=== PATIENT | female | born 1940 | race Caucasian/White ===

== ENCOUNTER 2018-12-03 15:03 | Emergency (ER) | payer MEDICARE, SELFPAY ==
[2018-12-03 15:16] VITALS: BP 189/91; PULSE 82; RESP 13; TEMP 36.4; O2SAT 99
--- NOTE | 2018-12-03 15:17 | DI.RAD.S_ITS ---
PROCEDURE: XR CHEST 1V INDICATIONS: chest pain TECHNIQUE: One view of the chest was acquired. COMPARISON: [facility], , CHEST 2 VIEW, 05/04/2015, 19:55. FINDINGS: Surgical changes and devices: None. Lungs and pleura: Lungs are clear. No pleural effusions or pneumothorax. Mediastinum: Mediastinal contours appear normal. Heart size is normal. Bones and chest wall: No suspicious bony lesions. Overlying soft tissues appear unremarkable. IMPRESSION: Normal chest, stable. Dictated by: Lizzette Young M.D. on 12/03/2018 at 16:14 Approved by: Lizzette Young M.D. on 12/03/2018 at 16:14
[2018-12-03 15:39] LABS: Add Manual Diff / Slide Review NO; Basophils Absolute Auto 100 /uL (0-100); Basophils Percent Auto 1.3 % (0-2); Eosinophils Absolute Auto 100 /uL (0-450); Eosinophils Percent Auto 1.6 % (2-4); Hematocrit 43.7 % (36-46); Lymphocytes Absolute Auto 2800 /uL (1100-4500); Lymphocytes Percent Auto 30.4 % (25-40); Mean Corpuscular HGB Conc 34.2 % (30-36); Mean Corpuscular Hemoglobin 29.3 PG (26-34); Mean Corpuscular Volume 85.5 fL (80-100); Monocytes Absolute Auto 600 /uL (0-900); Monocytes Percent Auto 6.5 % (3-14); Neutrophils Absolute Auto 5600 /uL (1500-7000); Neutrophils Percent Auto 60.2 % (50-75); Platelet Count 250 X10^3/uL (150-400); Red Blood Cell Count 5.11 X10^6/uL (4.0-5.2); Red Cell Distribution Width 14.2 % (11.6-14.8); White Blood Cell Count 9.3 X10^3/uL (4.5-11.0)
[2018-12-03 15:43] LABS: INR 0.9 (0.9-1.3); Prothrombin Time 10.1 SECONDS (10.1-12.7)
[2018-12-03 15:45] LABS: PTT Partial Thromboplastin Tim 29 SECONDS (26.4-36.2)
--- NOTE | 2018-12-03 15:47 | ED.CHESTPAIN ---
HPI - Chest Pain General Chief Complaint: Chest Pain Stated Complaint: sent by [facility], squeezing feeling, chest and neck Time Seen by Provider: 12/03/18 15:47 Source: patient Mode of arrival: ambulatory Limitations: no limitations History of Present Illness HPI narrative: 78-year-old female comes to the emergency department with complaint of squeezing feeling in her upper chest/lower neck and between her shoulder blades. Patient states it has been going on for about 3 weeks. She states it seems like it is relieved when she has a burp but feels like pressure. She states that some it has increased in intensity. It has been intermittent with no clear causes or exacerbating features. She states that today she went for a walk which she normally does on a regular basis they normally walks about 3 miles which she had to stop 3 times because she felt a little short of breath. Patient states that was new. She states she has been hiking regularly without any issues. She states that she did have food a couple hours before and she thought that might have caused her symptoms. Denies fevers, chills, she has had some hot flashes intermittently but not associated with her symptoms. She states no shortness of breath, no nausea no vomiting some but she felt anxious when the episode was happening. No issues with bowel movements or urination and no numbness tingling or weakness in her upper extremities. She takes lisinopril as well as metformin. No stents, no catheterization, she had a TIA a couple months ago. She a stress test very remotely. States she has a hysterectomy, 1 of her ovaries removed an fracture repair for her left wrist. Pratik is her PCP no tobacco, occasional alcohol no illicit. Family history half brother with a AAA but no other cardiac history. Related Data Home Medications Medication Instructions Recorded Confirmed metformin 1,000 mg PO BIDCC #0 06/01/17 06/24/18 Previous Rx's Medication Instructions Recorded aspirin 81 mg PO QDAY #30 tab 06/02/17 benzonatate 100 mg capsule 100 mg PO BEDTIME #20 cap 06/24/18 erythromycin 5 mg/gram (0.5 %) eye 1 applictn OPHTHALMIC (EYE) BID 06/24/18 ointment #3.5 gram Allergies Allergy/AdvReac Type Severity Reaction Status Date / Time Sulfa (Sulfonamide Allergy Intermediate SKIN Verified 06/24/18 16:20 Antibiotics) BRUISING prednisone [PREDNISONE] Allergy Unknown MORBID Verified 06/24/18 16:20 NIGHTMARES rosuvastatin [From Crestor] AdvReac Intermediate Muscle Verified 06/24/18 16:21 aches, fatigue Review of Systems Review of Systems ROS Unobtainable: All systems reviewed & are unremarkable except as noted in HPI and below PFSH Medical History (Updated 12/03/18 @ 16:13 by Pam Rudd DO) Hypertension (Chronic) Surgical History History of third molar tooth extraction Status post appendectomy Status post hysterectomy with oophorectomy Social History Smoking Status: Former smoker Family History (Updated 12/03/18 @ 16:11 by Pam Rudd DO) Brother AAA (abdominal aortic aneurysm) Social History (Updated 12/03/18 @ 16:11 by Pam Rudd DO) Smoking Status: Former smoker alcohol intake: current substance use type: does not use Exam Narrative Exam Narrative: GENERAL: Alert and oriented x three, well-nourished, well-appearing female in no acute distress. HEENT: Head normocephalic, atraumatic, EOMI, pupils reactive, face symmetric, moist mucous membranes NECK: Supple, full range of motion CARDIOVASCULAR: Regular rate and rhythm without murmurs, rubs or gallops. RESPIRATORY: Breath sounds equal bilaterally, no wheezes rales or rhonchi. ABDOMEN: Soft, nontender. Normoactive bowel sounds all 4 quadrants. No guarding or rebound, rigidity, no mass : No CVA tenderness EXTREMITIES: Normal range of motion, no clubbing or edema. Neurovascularly intact NEUROLOGICAL: Cranial nerves II through XII grossly intact. Moving all extremities SKIN: Warm, dry, no petechiae, no rashes or lesions. Initial Vital Signs Initial Vital Signs: Vital Signs Temperature 97.5 F L 12/03/18 15:16 Pulse Rate 82 12/03/18 15:16 Respiratory Rate 13 12/03/18 15:16 Blood Pressure 189/91 H 12/03/18 15:16 Pulse Oximetry 99 12/03/18 15:16 Scores HEART Score Heart Score history: Moderately Suspicious Heart Score EKG: Non-Specific repolarization disturbance Heart Score Age: > or = 65 years old Heart Score risk factors: 1-2 risk factors Heart Score troponin: < or = to normal limit Heart Score Total: 5 Course Orders Ordered: ED Orders 12/03/18 15:15 EKG-12 Lead Stat 12/03/18 15:17 XR chest 1V Stat 12/03/18 15:30 B Type Natriuretic Peptide Stat Complete Blood Count AUTO DIFF Stat Comprehensive Metabolic Panel Stat Lipase Stat Partial Thromboplastin Time Stat Prothrombin Time INR Stat Troponin & CK Cardiac Panel Stat Discontinued Medications Aspirin (Aspirin Chew) 324 mg PO NOW ONE Stop: 12/03/18 16:14 Last Admin: 12/03/18 16:40 Dose: 324 mg Vital Signs - 8 hr 12/03/18 15:16 12/03/18 17:20 Temperature 97.5 F L Pulse Rate 82 60 Respiratory Rate 13 15 Blood Pressure 189/91 H 163/76 H Pulse Oximetry 99 100 MDM - Chest Pain Lab Data Attestation: I reviewed the patient's lab results. Result diagrams: 12/03/18 15:30 12/03/18 15:30 Lab Results 12/03/18 12/03/18 12/03/18 Range/Units 15:30 15:30 15:30 WBC 9.3 (4.5-11.0) X10^3/uL RBC 5.11 (4.0-5.2) X10^6/uL Hgb 15.0 (12.0-16.0) g/dL Hct 43.7 (36-46) % MCV 85.5 (80-100) fL MCH 29.3 (26-34) PG MCHC 34.2 (30-36) % RDW 14.2 (11.6-14.8) % Plt Count 250 (150-400) X10^3/uL Neut % (Auto) 60.2 (50-75) % Lymph % (Auto) 30.4 (25-40) % [place] % (Auto) 6.5 (3-14) % Eos % (Auto) 1.6 L (2-4) % Baso % (Auto) 1.3 (0-2) % Neut # (Auto) 5600 (4672-4985) /uL Lymph # (Auto) 2800 (8043-4805) /uL [place] # (Auto) 600 (0-900) /uL Eos # (Auto) 100 (0-450) /uL Baso # (Auto) 100 (0-100) /uL PT 10.1 (10.1-12.7) SECONDS INR 0.9 (0.9-1.3) APTT 29 (26.4-36.2) SECONDS Sodium 138 (137-145) mmol/L Potassium 4.1 (3.4-5.1) mmol/L Chloride 101 (98-107) mmol/L Carbon Dioxide 26 (22-32) mmol/L BUN 21 H (7-17) mg/dL Creatinine 0.60 (0.52-1.04) mg/dL Estimated GFR > 60.0 (>60) mL/min BUN/Creatinine Ratio 35.0 H (6-22) Glucose 177 H (80-110) mg/dL Calcium 9.7 (8.4-10.2) mg/dL Total Bilirubin 0.8 (0.2-1.3) mg/dL AST 27 (14-36) IU/L ALT 13 (9-52) IU/L Alkaline Phosphatase 67 (38-126) U/L Total Creatine Kinase 44 (30-135) U/L CK-MB (CK-2) TNP CK-MB (CK-2) Rel Index TNP Troponin I < 0.012 (0.01-0.034) ng/mL B-Natriuretic Peptide (<100) Total Protein 7.9 (6.3-8.2) g/dL Albumin 4.5 (3.5-5.0) g/dL Globulin 3.4 (1.7-4.1) g/dL Albumin/Globulin Ratio 1.3 (1.0-2.8) Lipase 70 (23-300) U/L // Range/Units 15:30 WBC (4.5-11.0) X10^3/uL RBC (4.0-5.2) X10^6/uL Hgb (12.0-16.0) g/dL Hct (36-46) % MCV (80-100) fL MCH (26-34) PG MCHC (30-36) % RDW (11.6-14.8) % Plt Count (150-400) X10^3/uL Neut % (Auto) (50-75) % Lymph % (Auto) (25-40) % [place] % (Auto) (3-14) % Eos % (Auto) (2-4) % Baso % (Auto) (0-2) % Neut # (Auto) (0138-2597) /uL Lymph # (Auto) (8538-8345) /uL [place] # (Auto) (0-900) /uL Eos # (Auto) (0-450) /uL Baso # (Auto) (0-100) /uL PT (10.1-12.7) SECONDS INR (0.9-1.3) APTT (26.4-36.2) SECONDS Sodium (137-145) mmol/L Potassium (3.4-5.1) mmol/L Chloride (98-107) mmol/L Carbon Dioxide (22-32) mmol/L BUN (7-17) mg/dL Creatinine (0.52-1.04) mg/dL Estimated GFR (>60) mL/min BUN/Creatinine Ratio (6-22) Glucose (80-110) mg/dL Calcium (8.4-10.2) mg/dL Total Bilirubin (0.2-1.3) mg/dL AST (14-36) IU/L ALT (9-52) IU/L Alkaline Phosphatase (38-126) U/L Total Creatine Kinase (30-135) U/L CK-MB (CK-2) CK-MB (CK-2) Rel Index Troponin I (0.01-0.034) ng/mL B-Natriuretic Peptide < 100 (<100) Total Protein (6.3-8.2) g/dL Albumin (3.5-5.0) g/dL Globulin (1.7-4.1) g/dL Albumin/Globulin Ratio (1.0-2.8) Lipase (23-300) U/L Imaging Data Chest x-ray: Radiologist's impression: Alice Rangel 78 F [address] [address] XRay Report Signed Patient: Alice Rangel FMR#: [id number] : 2Acct:[id number] Age/Sex: 78 / FDate of Service: 12/03/18 Loc: ED Accession Number: [id number] Procedure: XR chest 1V Ordering Provider: Pam Rudd D.O. PROCEDURE: XR CHEST 1V INDICATIONS: chest pain TECHNIQUE: One view of the chest was acquired. COMPARISON: [facility], , CHEST 2 VIEW, 05/04/2015, 19:55. FINDINGS: Surgical changes and devices: None. Lungs and pleura: Lungs are clear. No pleural effusions or pneumothorax. Mediastinum: Mediastinal contours appear normal. Heart size is normal. Bones and chest wall: No suspicious bony lesions. Overlying soft tissues appear unremarkable. IMPRESSION: Normal chest, stable. Dictated by: Lizzette Young M.D. on 12/03/2018 at 16:14 Approved by: Lizzette Young M.D. on 12/03/2018 at 16:14 ECG Data Attestation: I personally reviewed and interpreted this ECG as follows: Prior ECG tracings: available for review Interpretation: Sinus rhythm with a rate of 66 P are 161 QRS of 91 QTC of 424. No ST elevation. Possible ST depression although 0.5 mm to 1 mm in the lateral leads. Patient has prior EKG from 06/01/2018 appears similar except for lateral leads. MDM Narrative Medical decision making narrative: Patient's lab work shows no acute changes. Patient CXR is nap. Patient's EKG does not show any clear changes although possibly a little depression in lateral leads. Discussed with patient this could potentially be a cardiac equivalent for atypical chest pain although unclear if she finds it improved with belching. Discussed chest pain observation for stress testing. Patient referred to return home discussed chatting with her primary care to get her setup was out short-term outpatient stress testing as her symptoms are intermittent and not associated with anything so they were chest pain equivalent would be an unstable angina. We did discuss that it would be safer for her to be kept as observation for stress testing and that ws recommended. Discussed with patient's primary care team her primary care doctor is on vacation but discussed with Dr. Solis he states if she can call in the morning they will get her in for eval and stress testing this week. We discussed that patient should take a daily aspirin. Discharge Plan Departure Patient Disposition: Home Clinical Impression: Atypical chest pain Discharge Date/Time: 12/03/18 17:20 Interventions: ED Discharge Assessment Last Done: 12/03/18 17:20 Instructions: DI for Atypical Chest Pain Activity Restrictions/Additional Instructions: Call the morning for follow-up with Dr. Christie's office and stress testing this week. Continue an aspirin daily until seen by [facility] primary care. Continue her other home medications as prescribed. Return to the emergency department for new or recurrent symptoms, new chest pain, shortness of breath, lightheadedness, passing out, persistent nausea or vomiting, clamminess or cold sweats, or concerning symptoms. Prescriptions: No Action benzonatate 100 mg capsule 100 mg PO BEDTIME Qty: 20 RF: 0 erythromycin 5 mg/gram (0.5 %) ointment 1 applictn ophthalmic (eye) BID Qty: 3.5 RF: 2 metformin 1,000 MG tablet 1,000 mg PO BIDCC Qty: 0 RF: 0 aspirin 81 MG tablet,delayed release (DR/EC) 81 mg PO QDAY Qty: 30 RF: 0 Referrals: Gold Christie MD [Primary Care Provider] -
[2018-12-03 15:52] LABS: Alanine Aminotransferase 13 IU/L (9-52); Albumin 4.5 g/dL (3.5-5.0); Albumin Globulin Ratio 1.3 (1.0-2.8); Alkaline Phosphatase 67 U/L (38-126); Aspartate Aminotransferase 27 IU/L (14-36); Bilirubin Total 0.8 mg/dL (0.2-1.3); Blood Urea Nitrogen 21 mg/dL (7-17); Calcium 9.7 mg/dL (8.4-10.2); Carbon Dioxide 26 mmol/L (22-32); Chloride 101 mmol/L (98-107); Creatine Kinase 44 U/L (30-135); Estimated Glomerular Filt Rate > 60.0 mL/min (>60); Globulin 3.4 g/dL (1.7-4.1); Glucose 177 mg/dL (80-110); HEMOLYSIS 48 (0-50); Lipase 70 U/L (23-300); Potassium 4.1 mmol/L (3.4-5.1); Sodium 138 mmol/L (137-145); Total Protein 7.9 g/dL (6.3-8.2)
[2018-12-03 16:04] LABS: Troponin I < 0.012 ng/mL (0.01-0.034)
--- NOTE | 2018-12-03 16:06 | ED_ITS ---
HPI - Chest Pain General Chief Complaint: Chest Pain Stated Complaint: sent by [facility], squeezing feeling, chest and neck Time Seen by Provider: 12/03/18 15:47 Source: patient Mode of arrival: ambulatory Limitations: no limitations History of Present Illness HPI narrative: 78-year-old female comes to the emergency department with complaint of squeezing feeling in her upper chest/lower neck and between her shoulder blades. Patient states it has been going on for about 3 weeks. She states it seems like it is relieved when she has a burp but feels like pressure. She states that some it has increased in intensity. It has been intermittent with no clear causes or exacerbating features. She states that today she went for a walk which she normally does on a regular basis they normally walks about 3 miles which she had to stop 3 times because she felt a little short of breath. Patient states that was new. She states she has been hiking regularly without any issues. She states that she did have food a couple hours before and she thought that might have caused her symptoms. Denies fevers, chills, she has had some hot flashes intermittently but not associated with her symptoms. She states no shortness of breath, no nausea no vomiting some but she felt anxious when the episode was happening. No issues with bowel movements or urination and no numbness tingling or weakness in her upper extremities. She takes lisinopril as well as metformin. No stents, no catheterization, she had a TIA a couple mon ths ago. She a stress test very remotely. States she has a hysterectomy, 1 of her ovaries removed an fracture repair for her left wrist. Pratik is her PCP no tobacco, occasional alcohol no illicit. Family history half brother with a AAA but no other cardiac history. Related Data Home Medications Medication Instructions Recorded Confirmed metformin 1,000 mg PO BIDCC #0 06/01/17 06/24/18 Previous Rx's Medication Instructions Recorded aspirin 81 mg PO QDAY #30 tab 06/02/17 benzonatate 100 mg capsule 100 mg PO BEDTIME #20 cap 06/24/18 erythromycin 5 mg/gram (0.5 %) eye 1 applictn OPHTHALMIC (EYE) BID 06/24/18 ointment #3.5 gram Allergies Allergy/AdvReac Type Severity Reaction Status Date / Time Sulfa (Sulfonamide Allergy Intermediate SKIN Verified 06/24/18 16:20 Antibiotics) BRUISING prednisone [PREDNISONE] Allergy Unknown MORBID Verified 06/24/18 16:20 NIGHTMARES rosuvastatin [From Crestor] AdvReac Intermediate Muscle Verified 06/24/18 16:21 aches, fatigue Review of Systems Review of Systems ROS Unobtainable: All systems reviewed & are unremarkable except as noted in HPI and below PFSH Medical History (Updated 12/03/18 @ 16:13 by Pam Rudd DO) Hypertension (Chronic) Surgical History History of third molar tooth extraction Status post appendectomy Status post hysterectomy with oophorectomy Social History Smoking Status: Former smoker Family History (Updated 12/03/18 @ 16:11 by Pam Rudd DO) Brother AAA (abdominal aortic aneurysm) Social History (Updated 12/03/18 @ 16:11 by Pam Rudd DO) Smoking Status: Former smoker alcohol intake: current substance use type: does not use Exam Narrative Exam Narrative: GENERAL: Alert and oriented x three, well-nourished, well- appearing female in no acute distress. HEENT: Head normocephalic, atraumatic, EOMI, pupils reactive, face symmetric, moist mucous membranes NECK: Supple, full range of motion CARDIOVASCULAR: Regular rate and rhythm without murmurs, rubs or gallops. RESPIRATORY: Breath sounds equal bilaterally, no wheezes rales or rhonchi. ABDOMEN: Soft, nontender. Normoactive bowel sounds all 4 quadrants. No guarding or rebound, rigidity, no mass : No CVA tenderness EXTREMITIES: Normal range of motion, no clubbing or edema. Neurovascularly intact NEUROLOGICAL: Cranial nerves II through XII grossly intact. Moving all extremities SKIN: Warm, dry, no petechiae, no rashes or lesions. Initial Vital Signs Initial Vital Signs: Vital Signs Temperature 97.5 F L 12/03/18 15:16 Pulse Rate 82 12/03/18 15:16 Respiratory Rate 13 12/03/18 15:16 Blood Pressure 189/91 H 12/03/18 15:16 Pulse Oximetry 99 12/03/18 15:16 Scores HEART Score Heart Score history: Moderately Suspicious Heart Score EKG: Non-Specific repolarization disturbance Heart Score Age: > or = 65 years old Heart Score risk factors: 1-2 risk factors Heart Score troponin: < or = to normal limit Heart Score Total: 5 Course Orders Ordered: ED Orders 12/03/18 15:15 EKG-12 Lead Stat 12/03/18 15:17 XR chest 1V Stat 12/03/18 15:30 B Type Natriuretic Peptide Stat Complete Blood Count AUTO DIFF Stat Comprehensive Metabolic Panel Stat Lipase Stat Partial Thromboplastin Time Stat Prothrombin Time INR Stat Troponin & CK Cardiac Panel Stat Discontinued Medications Aspirin (Aspirin Chew) 324 mg PO NOW ONE Stop: 12/03/18 16:14 Last Admin: 12/03/18 16:40 Dose: 324 mg Vital Signs - 8 hr 12/03/18 15:16 12/03/18 17:20 Temperature 97.5 F L Pulse Rate 82 60 Respiratory Rate 13 15 Blood Pressure 189/91 H 163/76 H Pulse Oximetry 99 100 MDM - Chest Pain Lab Data Attestation: I reviewed the patient's lab results. Result diagrams: 12/03/18 15:30 12/03/18 15:30 Lab Results 12/03/18 12/03/18 12/03/18 Range/Units 15:30 15:30 15:30 WBC 9.3 (4.5-11.0) X10^3/uL RBC 5.11 (4.0-5.2) X10^6/uL Hgb 15.0 (12.0-16.0) g/dL Hct 43.7 (36-46) % MCV 85.5 (80-100) fL MCH 29.3 (26-34) PG MCHC 34.2 (30-36) % RDW 14.2 (11.6-14.8) % Plt Count 250 (150-400) X10^3/uL Neut % (Auto) 60.2 (50-75) % Lymph % (Auto) 30.4 (25-40) % [place] % (Auto) 6.5 (3-14) % Eos % (Auto) 1.6 L (2-4) % Baso % (Auto) 1.3 (0-2) % Neut # (Auto) 5600 (9526-7095) /uL Lymph # (Auto) 2800 (4180-2698) /uL [place] # (Auto) 600 (0-900) /uL Eos # (Auto) 100 (0-450) /uL Baso # (Auto) 100 (0-100) /uL PT 10.1 (10.1-12.7) SECONDS INR 0.9 (0.9-1.3) APTT 29 (26.4-36.2) SECONDS Sodium 138 (137-145) mmol/L Potassium 4.1 (3.4-5.1) mmol/L Chloride 101 (98-107) mmol/L Carbon Dioxide 26 (22-32) mmol/L BUN 21 H (7-17) mg/dL Creatinine 0.60 (0.52-1.04) mg/dL Estimated GFR > 60.0 (>60) mL/min BUN/Creatinine Ratio 35.0 H (6-22) Glucose 177 H (80-110) mg/dL Calcium 9.7 (8.4-10.2) mg/dL Total Bilirubin 0.8 (0.2-1.3) mg/dL AST 27 (14-36) IU/L ALT 13 (9-52) IU/L Alkaline Phosphatase 67 (38-126) U/L Total Creatine Kinase 44 (30-135) U/L CK-MB (CK-2) TNP CK-MB (CK-2) Rel Index TNP Troponin I < 0.012 (0.01-0.034) ng/mL B-Natriuretic Peptide (<100) Total Protein 7.9 (6.3-8.2) g/dL Albumin 4.5 (3.5-5.0) g/dL Globulin 3.4 (1.7-4.1) g/dL Albumin/Globulin Ratio 1.3 (1.0-2.8) Lipase 70 (23-300) U/L // Range/Units 15:30 WBC (4.5-11.0) X10^3/uL RBC (4.0-5.2) X10^6/uL Hgb (12.0-16.0) g/dL Hct (36-46) % MCV (80-100) fL MCH (26-34) PG MCHC (30-36) % RDW (11.6-14.8) % Plt Count (150-400) X10^3/uL Neut % (Auto) (50-75) % Lymph % (Auto) (25-40) % [place] % (Auto) (3-14) % Eos % (Auto) (2-4) % Baso % (Auto) (0-2) % Neut # (Auto) (5790-4321) /uL Lymph # (Auto) (5994-6219) /uL [place] # (Auto) (0-900) /uL Eos # (Auto) (0-450) /uL Baso # (Auto) (0-100) /uL PT (10.1-12.7) SECONDS INR (0.9-1.3) APTT (26.4-36.2) SECONDS Sodium (137-145) mmol/L Potassium (3.4-5.1) mmol/L Chloride (98-107) mmol/L Carbon Dioxide (22-32) mmol/L BUN (7-17) mg/dL Creatinine (0.52-1.04) mg/dL Estimated GFR (>60) mL/min BUN/Creatinine Ratio (6-22) Glucose (80-110) mg/dL Calcium (8.4-10.2) mg/dL Total Bilirubin (0.2-1.3) mg/dL AST (14-36) IU/L ALT (9-52) IU/L Alkaline Phosphatase (38-126) U/L Total Creatine Kinase (30-135) U/L CK-MB (CK-2) CK-MB (CK-2) Rel Index Troponin I (0.01-0.034) ng/mL B-Natriuretic Peptide < 100 (<100) Total Protein (6.3-8.2) g/dL Albumin (3.5-5.0) g/dL Globulin (1.7-4.1) g/dL Albumin/Globulin Ratio (1.0-2.8) Lipase (23-300) U/L Imaging Data Chest x-ray: Radiologist's impression: Alice Rangel 78 F [address] [address] XRay Report Signed Patient: Alice Rangel FMR#: [id number] : 2Acct:[id number] Age/Sex: 78 / FDate of Service: 12/03/18 Loc: ED Accession Number: [id number] Procedure: XR chest 1V Ordering Provider: Pam Rudd D.O. PROCEDURE: XR CHEST 1V INDICATIONS: chest pain TECHNIQUE: One view of the chest was acquired. COMPARISON: [facility], CHEST 2 VIEW, 05/04/2015, 19:55. FINDINGS: Surgical changes and devices: None. Lungs and pleura: Lungs are clear. No pleural effusions or pneumothorax. Mediastinum: Mediastinal contours appear normal. Heart size is normal. Bones and chest wall: No suspicious bony lesions. Overlying soft tissues appear unremarkable. IMPRESSION: Normal chest, stable. Dictated by: Lizzette Young M.D. on 12/03/2018 at 16:14 Approved by: Lizzette Young M.D. on 12/03/2018 at 16:14 ECG Data Attestation: I personally reviewed and interpreted this ECG as follows: Prior ECG tracings: available for review Interpretation: Sinus rhythm with a rate of 66 P are 161 QRS of 91 QTC of 424. No ST elevation. Possible ST depression although 0.5 mm to 1 mm in the lateral leads. Patient has prior EKG from 06/01/2018 appears similar except for lateral leads. MDM Narrative Medical decision making narrative: Patient's lab work shows no acute changes. Patient CXR is nap. Patient's EKG does not show any clear changes although possibly a little depression in lateral leads. Discussed with patient this could potentially be a cardiac equivalent for atypical chest pain although unclear if she finds it improved with belching. Discussed chest pain observation for stress testing. Patient referred to return home discussed chatting with her primary care to get her setup was out short-term outpatient stress testing as her symptoms are intermittent and not associated with anything so they were chest pain equivalent would be an unstable angina. We did discuss that it would be safer for her to be kept as observation for stress testing and that ws recommended. Discussed with patient's primary care team her primary care doctor is on vacation but discussed with Dr. Solis he states if she can call in the morning they will get her in for eval and stress testing this week. We discussed that patient should take a daily aspirin. Discharge Plan Departure Patient Disposition: Home Clinical Impression: Atypical chest pain Discharge Date/Time: 12/03/18 17:20 Interventions: ED Discharge Assessment Last Done: 12/03/18 17:20 Instructions: DI for Atypical Chest Pain Activity Restrictions/Additional Instructions: Call the morning for follow-up with Dr. Christie's office and stress testing this week. Continue an aspirin daily until seen by [facility]. Continue her other home medications as prescribed. Return to the emergency department for new or recurrent symptoms, new chest pain, shortness of breath, lightheadedness, passing out, persistent nausea or vomiting, clamminess or cold sweats, or concerning symptoms. Prescriptions: No Action benzonatate 100 mg capsule 100 mg PO BEDTIME Qty: 20 RF: 0 erythromycin 5 mg/gram (0.5 %) ointment 1 applictn ophthalmic (eye) BID Qty: 3.5 RF: 2 metformin 1,000 MG tablet 1,000 mg PO BIDCC Qty: 0 RF: 0 aspirin 81 MG tablet,delayed release (DR/EC) 81 mg PO QDAY Qty: 30 RF: 0 Referrals: Gold Christie MD [Primary Care Provider] -
[2018-12-03 16:34] LABS: B Type Natriuretic Peptide < 100 (<100)
[2018-12-03] MEDS: ASPIRIN 81 MG TAB 324 MG PO (16:40)
--- NOTE | 2018-12-03 16:46 | PC.NURSE ---
Pain is intermittent with no known precipitating factor. It is mainly at the base of the neck and upper shoulder region and sometimes on the front of the neck. She denies any other symptoms that accompany the pain. She is in no pain currently. Appears in no acute distress, easy work of breathing. States sometimes when she burps that seems to help.
[2018-12-03 17:20] VITALS: BP 163/76; PULSE 60; RESP 15; O2SAT 100
== END 2018-12-03 17:20 | disposition home or self-care (01) ==
PROVIDERS: Emergency Provider Emergency Medicine; Family Provider Internal Medicine; PCP Internal Medicine
DX: R07.89 Other chest pain (principal)
CPT/HCPCS: 36591; 71045; 80053; 82550; 83690; 83880; 84484; 85025; 85610; 85730; 93005; 99282; 99285

== ENCOUNTER → 2020-02-19 15:33 | Outpatient (ROUT) | payer MEDICARE, SELFPAY ==
[2020-02-19 16:21] LABS: Aspartate Aminotransferase 20 IU/L (14-36); Blood Urea Nitrogen 20 mg/dL (7-17); Calcium 9.7 mg/dL (8.4-10.2); Carbon Dioxide 31 mmol/L (22-32); Chloride 99 mmol/L (98-107); Cholesterol 288 mg/dL (140-199); Estimated Glomerular Filt Rate > 60.0 mL/min (>60); Glucose 253 mg/dL (80-110); HDL Cholesterol 63 mg/dL (40-60); HEMOLYSIS < 15 (0-50); LDL Cholesterol Calculated 163 mg/dL (<100); Potassium 4.1 mmol/L (3.4-5.1); Sodium 136 mmol/L (137-145); Triglycerides 310 mg/dL (35-150)
== END ==
PROVIDERS: Family Provider Internal Medicine; PCP Internal Medicine; Visit Provider Internal Medicine
DX: I10 Essential (primary) hypertension (principal); E78.2 Mixed hyperlipidemia
CPT/HCPCS: 80048; 80061; 84450

== ENCOUNTER → 2020-08-07 10:48 | Outpatient (CLI) | payer MEDICARE, SELFPAY ==
--- NOTE | 2020-08-07 10:50 | DI.MG.S_ITS ---
BILATERAL DIGITAL SCREENING MAMMOGRAM 3D/2D WITH CAD: 08/07/2020 CLINICAL: Routine screening. Family history of breast cancer. Comparison is made to exams dated: 07/24/2017 mammogram, 06/06/2013 mammogram - [facility], and 02/24/2011 mammogram - [facility]. There are scattered fibroglandular elements in both breasts. Current study was also evaluated with a Computer Aided Detection (CAD) system. No significant masses, calcifications, or other findings are seen in either breast. There has been no significant interval change. IMPRESSION: NEGATIVE There is no mammographic evidence of malignancy. A 1 year screening mammogram is recommended. This exam was interpreted at Station ID: [id number]. NOTE: For mammograms, a report in lay terms will be sent to the patient. Approximately 15% of breast malignancies will not be visualized mammographically. In the management of a palpable breast mass, a negative mammogram must not discourage biopsy of a clinically suspicious lesion. Electronically Signed By: Chico villafuerte/mychal:08/09/2020 08:05:33 letter sent: Normal Exam ACR BI-RADS Category 1: Negative 3341F
== END ==
PROVIDERS: Family Provider Internal Medicine; PCP Internal Medicine; Referring Provider Internal Medicine; Visit Provider Internal Medicine
DX: Z12.31 Encounter for screening mammogram for malignant neoplasm of breast (principal); Z80.3 Family history of malignant neoplasm of breast
CPT/HCPCS: 77063; 77067

== ENCOUNTER → 2022-01-21 09:57 | Outpatient (CLI) | payer MEDICARE, SELFPAY ==
--- NOTE | 2022-01-21 | DI.MG.S_ITS ---
BILATERAL DIGITAL SCREENING MAMMOGRAM 3D/2D WITH CAD: 01/21/2022 CLINICAL: Routine screening. Family history of breast cancer. Comparison is made to exams dated: 08/07/2020 mammogram, 07/24/2017 mammogram, and 06/06/2013 mammogram - [facility]. There are scattered areas of fibroglandular density in both breasts (category b / 25%-50% glandular tissue). Current study was also evaluated with a Computer Aided Detection (CAD) system. There is a benign calcification in both breasts. There also are benign vascular calcifications in the left breast. Additionally, there are benign post operative findings in the right breast. There are mole markers on the left breast. No significant masses, calcifications, or other findings are seen in either breast. There has been no significant interval change. IMPRESSION: BENIGN There is no mammographic evidence of malignancy. A 1 year screening mammogram is recommended. Based on the Tyrer Cuzick model (a risk assessment model) the patient's lifetime risk is 1.5% and her 10 year risk is 0.0%. According to the ACR, ACS, and NCCN guidelines, an annual breast MRI exam along with mammogram is recommended if the patient's lifetime risk is 20% or greater. This exam was interpreted at Station ID: [id number]. NOTE: For mammograms, a report in lay terms will be sent to the patient. Approximately 15% of breast malignancies will not be visualized mammographically. In the management of a palpable breast mass, a negative mammogram must not discourage biopsy of a clinically suspicious lesion. Electronically Signed By: Justen doty/mychal:01/23/2022 10:05:02 letter sent: Normal Exam ACR BI-RADS Category 2: Benign Finding(s) 3342F
== END ==
PROVIDERS: Family Provider Internal Medicine; PCP Internal Medicine; Referring Provider Student in an Organized Health Care Education/Training Program; Visit Provider Student in an Organized Health Care Education/Training Program
DX: Z12.31 Encounter for screening mammogram for malignant neoplasm of breast (principal); Z80.3 Family history of malignant neoplasm of breast
CPT/HCPCS: 77063; 77067

== ENCOUNTER → 2022-02-09 09:10 | Outpatient (CLI) | payer MEDICARE, SELFPAY ==
--- NOTE | 2022-02-09 | DI.ECHO.S_ITS ---
[facility] +---------+ [facility] +---------+ : : [address] [place] [place] : : : : [id number] : : : : Phone: [phone]+ Echocardiogram Report + + :Name: IAN STEWART Study Date: 02/09/2022 Height: 65 in : :[facility] ReadingLocation: Weight: 146 lb : : Gender: Female BSA: 1.7 m2 : :: 1940 Age: 81 yrs BP: 181/97 mmHg: :Reason For Study: Murmur : :Ordering Physician: KAUSHIK, : :NATALIE Performed By: Fidel Hickey : :Referring: NATALIE FAULKNER : + + Interpretation Summary The ejection fraction is estimated to be 60-65%. Grade II diastolic dysfunction The right ventricle is normal in size and function. The right ventricular systolic pressure is estimated to be at least 27 mmHg based on an estimated right atrial pressure of 3 mm Hg. No significant valvular disease. Procedure: A two-dimensional transthoracic echocardiogram with color flow and Doppler was performed. The study quality was technically adequate. Comparison is made with the echocardiogram of 06/08/2017. The patient was in normal sinus rhythm during the exam. Left Ventricle: The left ventricle is normal in size and wall thickness. Left ventricular systolic function is normal. The ejection fraction is estimated to be 60-65%. There are no focal wall motion abnormalities. Grade II diastolic dysfunction. Right Ventricle: The right ventricle is normal in size and function. Atria: The left atrium is mildly dilated. Right atrial size is normal. The interatrial septum grossly appears intact with no obvious evidence for an atrial septal defect. Mitral Valve: There is moderate mitral annular calcification. There is mild mitral regurgitation. Aortic Valve: The aortic valve is normal in structure and function. There is no hemodynamically significant valvular aortic stenosis. No aortic regurgitation is present. Tricuspid Valve: The tricuspid valve is normal in structure and function. There is mild tricuspid regurgitation. The right ventricular systolic pressure is estimated to be at least 27 mmHg based on an estimated right atrial pressure of 3 mm Hg. Pulmonic Valve: The pulmonic valve is normal in structure and function. There is trace pulmonic regurgitation. Great Vessels: The aortic root is normal size. The dimensions of the ascending aorta are normal. The IVC is of normal diameter and collapses greater than 50% with a sniff. This suggests a low right atrial pressure of 3 mm Hg. Pericardium/ Pleura There is no pericardial effusion. There is no pleural effusion. MMode/2D Measurements & Calculations LVIDd: 4.7 cm LVOT diam: 2.1 cm LVIDs: 3.2 cm Ao root diam: 2.7 cm FS: 31.9 % asc Aorta Diam: 2.8 cm IVSd: 0.80 cm LVPWd: 0.90 cm LV to. diameter/BSA (cm/m^2): 2.7 LV sys. diameter/BSA (cm/m^2): 1.8 LA dimension: 3.6 cm RA long axis: 5.1 cm LA A2 area: 20.8 cm2 LA A4 area: 21.7 cm2 LA length (vol): 6.1 cm LA vol: 63.1 ml LA vol index: 36.4 ml/m2 LA A4C-A/L_phl: 21.7 cm2 TAPSE_phl: 2.6 cm Doppler Measurements & Calculations Ao V2 max: 191.0 cm/sec LVOT Max Michael: 99.2 cm/sec Ao V2 mean: 132.0 cm/sec LV V1 max P.9 mmHg Ao max P.0 mmHg LV V1 VTI: 25.2 cm Ao mean P.0 mmHg ERNESTINE(I,D): 2.0 cm2 Ao V2 VTI: 43.3 cm ERNESTINE(V,D): 1.8 cm2 sev ratio: 0.58 ERNESTINE indexed to BSA (cm^2/m^2): 1.2 MV E max michael: 114.0 cm/sec TR max michael: 244.0 cm/sec MV A max michael: 103.0 cm/sec TR max P.8 mmHg MV E/A: 1.1 Med Peak E' Michael: 7.3 cm/sec E/E' med: 15.7 Lat Peak E' Michael: 8.4 cm/sec E/E' lat: 13.5 E/e' average: 14.6 MV dec time: 0.21 sec SV(LVOT): 87.3 ml AV VR_phl: 0.52 ERNESTINE(VTI)/BSA_phl: 1.2 MV P1/2t-pr_phl: 61.0 msec Reading Physician:POPPY
== END ==
PROVIDERS: Family Provider Internal Medicine; PCP Student in an Organized Health Care Education/Training Program; Referring Provider Student in an Organized Health Care Education/Training Program; Visit Provider Student in an Organized Health Care Education/Training Program
DX: R01.1 Cardiac murmur, unspecified (principal); I08.1 Rheumatic disorders of both mitral and tricuspid valves
CPT/HCPCS: 93306

== ENCOUNTER → 2022-04-04 09:44 | Outpatient (CLI) | payer MEDICARE, SELFPAY ==
--- NOTE | 2022-04-04 | DI.RAD.S_ITS ---
PROCEDURE: XR HIP W PEL IF DONE RT 2V INDICATIONS: Other chronic pain TECHNIQUE: AP pelvis with lateral view(s) of the right hip(s). COMPARISON: None. FINDINGS: Bones: No fractures or dislocations. Pelvic ring appears intact. No suspicious bony lesions. There is symmetric moderate hip joint degeneration bilaterally. Soft tissues: The visualized bowel gas pattern is normal. No suspicious soft tissue calcifications. IMPRESSION: Moderate degenerative joint disease. Dictated by: Yadiel Paredes M.D. on 04/04/2022 at 19:15 Approved by: Yadiel Paredes M.D. on 04/04/2022 at 19:16
--- NOTE | 2022-04-04 | DI.RAD.S_ITS ---
PROCEDURE: XR LUMBAR SPINE 2-3V INDICATIONS: Other chronic pain TECHNIQUE: 3 views of the lumbar spine were acquired. COMPARISON: [facility], CR, XR CHEST 1V, 12/03/2018, 15:37. [facility], US, RENAL COMPLETE, 05/26/2013, 8:24. [facility], CT, THORAX WITHOUT CONTRAST, 05/23/2017, 9:44. [facility], , CHEST 2 VIEW, 05/04/2015, 19:55. FINDINGS: Bones: 5 exk-jqj-efoplur vertebrae are present. Note is made of rudimentary 12th pair of ribs. There is trace anterolisthesis L4 on L5. No vertebral body compression fractures. No suspicious bony lesions. There is mild degenerative disc disease throughout the lumbar spine. Vywfhzzk-zs-zyqlyr facet arthropathy at L3-L4, L4-L5 and L5-S1. Soft tissues: Overlying bowel gas pattern is normal. There is a calcific density in the left upper quadrant. IMPRESSION: 1. Degenerative disc and facet disease in lumbar spine. 2. A calcific density in the left upper quadrant. Question left renal stone. Dictated by: Yadiel Paredes M.D. on 04/04/2022 at 18:54 Approved by: Yadiel Paredes M.D. on 04/04/2022 at 19:08
== END ==
PROVIDERS: Family Provider Internal Medicine; PCP Student in an Organized Health Care Education/Training Program; Referring Provider Student in an Organized Health Care Education/Training Program; Visit Provider Student in an Organized Health Care Education/Training Program
DX: M51.36 Other intervertebral disc degeneration, lumbar region (principal); M47.816 Spondylosis without myelopathy or radiculopathy, lumbar region; M47.817 Spondylosis without myelopathy or radiculopathy, lumbosacral region; M16.0 Bilateral primary osteoarthritis of hip; M25.551 Pain in right hip; M54.50 Low back pain, unspecified; G89.29 Other chronic pain
CPT/HCPCS: 72100; 73502

== ENCOUNTER → 2022-06-28 08:34 | Outpatient (CLI) | payer MEDICARE, SELFPAY ==
--- NOTE | 2022-06-28 18:29 | DI.NM.S_ITS ---
DATE OF SERVICE: 06/28/2022 PROCEDURE: Exercise perfusion study. INDICATIONS: Exertional angina, diabetes mellitus hypertension hyperlipidemia. RADIOPHARMACEUTICAL: 25.5 mCi technetium-99m Myoview IV was injected at stress and 11.3 mCi technetium-99m Myoview IV was injected at rest. CARDIAC STRESS: The patient underwent exercise perfusion study under the supervision of an attending staff. She walked on Aly protocol for 5 minutes and 06 seconds, achieved 116 percent of target heart rate, with maximum heart rate 163 beats per minute. Resting blood pressure 115/68 mmHg. Peak blood pressure 150/94 mmHg. OTILIO +15 percent. Seven METs of workload. At peak exercise, patient had mild chest discomfort. The patient has brief atrial tachycardia, as well as intermittent PACs and PVCs without any complicated arrhythmias. In 5 minutes in recovery, the patient has less than [address] depression in inferolateral leads with T-wave inversion. RAW DATA: There is increased subdiaphragmatic activity. GATED STUDY: Stress LV ejection fraction 65 percent without any obvious wall motion abnormalities. Resting LV EF 78 percent. Resting end-diastolic volume 79 mL. TID ratio 1.05, which is within normal limits. Lung/heart ratio 0.36, which is within normal limits. MYOCARDIAL PERFUSION SCAN: Please note that there are no stress prone images. Stress supine and resting supine images were compared to each other. There appears to be small-sized, mild reversible ischemia of distal anterior wall and distal anterior septum. CONCLUSION: This is an abnormal myocardial perfusion study consistent with mild reversible ischemia of distal anterior wall and distal anterior septum. 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 The patient had chest pain at peak exercise. Functional aerobic impairment positive 15 percent. Normal hemodynamic response. Horizontal less than [address] depression and T-wave inversion in late recovery. Intermittent premature atrial contractions, atrial tachycardia and premature ventricular contractions without any complex arrhythmias like ventricular tachycardia. No obvious atrial fibrillation seen. Stress left ventricular ejection fraction 65 percent and resting left ventricular ejection fraction 78 percent. Alice Rangel - TATIANA/rebekah/RUFINO doc#: [id number]/job#: [id number] dd: 06/28/2022 17:29:00 dt: 06/28/2022 18:00:00 DICTATING MD/COPIES TO: Anastasia Tello MD; Kurtis Morgan MD COPIES MNE: AMI;
== END ==
PROVIDERS: Family Provider Internal Medicine; PCP Student in an Organized Health Care Education/Training Program; Referring Provider Internal Medicine Cardiovascular Disease; Visit Provider Internal Medicine Cardiovascular Disease
DX: I20.8 Other forms of angina pectoris (principal); R94.39 Abnormal result of other cardiovascular function study; E11.9 Type 2 diabetes mellitus without complications; I10 Essential (primary) hypertension; E78.5 Hyperlipidemia, unspecified
CPT/HCPCS: 78452; 93017; A9502

== ENCOUNTER → 2023-05-18 10:25 | Outpatient (CLI) | payer MEDICARE, SELFPAY ==
--- NOTE | 2023-05-18 10:28 | DI.MG.S_ITS ---
BILATERAL DIGITAL SCREENING MAMMOGRAM 3D/2D WITH CAD: 05/18/2023 CLINICAL: Routine screening. Family history of breast cancer. Comparison is made to exams dated: 01/21/2022 mammogram, 08/07/2020 mammogram, and 07/24/2017 mammogram - [facility]. There are scattered areas of fibroglandular density in both breasts (category b / 25%-50% glandular tissue). Current study was also evaluated with a Computer Aided Detection (CAD) system. There is a benign calcification in both breasts. There also are benign vascular calcifications in the left breast. Additionally, there are benign post operative findings in the right breast. There are mole markers on the left breast. No significant masses, calcifications, or other findings are seen in either breast. There has been no significant interval change. IMPRESSION: BENIGN There is no mammographic evidence of malignancy. A 1 year screening mammogram is recommended. Based on the Tyrer Cuzick model (a risk assessment model) the patient's lifetime risk is 0.7% and her 10 year risk is 0.0%. According to the ACR, ACS, and NCCN guidelines, an annual breast MRI exam along with mammogram is recommended if the patient's lifetime risk is 20% or greater. This exam was interpreted at Station ID: [id number]. NOTE: For mammograms, a report in lay terms will be sent to the patient. Approximately 15% of breast malignancies will not be visualized mammographically. In the management of a palpable breast mass, a negative mammogram must not discourage biopsy of a clinically suspicious lesion. Electronically Signed By: Yon brower/mychal:05/18/2023 13:42:53 letter sent: Normal Exam ACR BI-RADS Category 2: Benign Finding(s) 3342F
== END ==
PROVIDERS: Family Provider Internal Medicine; PCP Student in an Organized Health Care Education/Training Program; Referring Provider Student in an Organized Health Care Education/Training Program; Visit Provider Student in an Organized Health Care Education/Training Program
DX: Z12.31 Encounter for screening mammogram for malignant neoplasm of breast (principal); Z80.3 Family history of malignant neoplasm of breast
CPT/HCPCS: 77063; 77067

== ENCOUNTER → 2023-06-13 08:01 | Outpatient (CLI) | payer MEDICARE, SELFPAY ==
[2023-06-13 08:42] LABS: Add Manual Diff / Slide Review NO; Basophils Absolute Auto 100 /uL (0-100); Basophils Percent Auto 1.2 % (0-2); Eosinophils Absolute Auto 200 /uL (0-450); Eosinophils Percent Auto 2.1 % (2-4); Hemoglobin 12.7 g/dL (12.0-16.0); Lymphocytes Absolute Auto 2000 /uL (1100-4500); Lymphocytes Percent Auto 25.7 % (25-40); Mean Corpuscular HGB Conc 33.4 % (30-36); Mean Corpuscular Hemoglobin 29.3 PG (26-34); Mean Corpuscular Volume 87.8 fL (80-100); Monocytes Absolute Auto 600 /uL (0-900); Monocytes Percent Auto 7.2 % (3-14); Neutrophils Absolute Auto 4900 /uL (1500-7000); Neutrophils Percent Auto 63.8 % (50-75); Platelet Count 241 X10^3/uL (150-400); Red Blood Cell Count 4.33 X10^6/uL (4.0-5.2); Red Cell Distribution Width 13.4 % (11.6-14.8); White Blood Cell Count 7.7 X10^3/uL (4.5-11.0)
[2023-06-13 08:44] LABS: Appearance Urine UA CLEAR; Bilirubin Urine UA NEGATIVE (NEGATIVE); Color Urine UA YELLOW; Glucose Urine UA TRACE g/dL (Negative); Ketones Urine UA NEGATIVE (NEGATIVE); Leukocyte Esterase Urine UA 1+ (NEGATIVE); Nitrite Urine UA NEGATIVE (Negative); Occult Blood Urine UA NEGATIVE (Negative); Protein Urine UA NEGATIVE (Negative); Specific Gravity Urine UA 1.025 (1.000-1.035); Urobilinogen Urine UA 0.2 E.U./dL (0.2)
[2023-06-13 08:45] LABS: pH Urine UA 5.5 (4.5-8.0)
[2023-06-13 08:46] LABS: Urine Volume 10mL (spun)
[2023-06-13 08:49] LABS: Bacteria Urine None Seen; Culture Indicated Urine Specimen Cultured; RBC Urine None Seen (0-5/HPF); Squamous Epithelial Cell Urine 1-5 /HPF (0-5/HPF); WBC Urine 5-10/HPF (0-5/HPF)
[2023-06-13 09:00] LABS: Alanine Aminotransferase 16 IU/L (<35); Albumin 3.9 g/dL (3.5-5.0); Albumin Globulin Ratio 1.6 (1.0-2.8); Alkaline Phosphatase 51 U/L (38-126); Aspartate Aminotransferase 23 IU/L (14-36); BUN Creatinine Ratio 20.6 (6-22); Bilirubin Total 0.6 mg/dL (0.2-1.3); Blood Urea Nitrogen 13 mg/dL (7-17); Calcium 9.5 mg/dL (8.4-10.2); Carbon Dioxide 30 mmol/L (22-32); Chloride 101 mmol/L (98-107); Cholesterol 147 mg/dL (140-199); Estimated Glomerular Filt Rate > 60 mL/min (>60); Globulin 2.5 g/dL (1.7-4.1); Glucose 141 mg/dL (80-110); HDL Cholesterol 51 mg/dL (40-60); HEMOLYSIS < 15 (0-50); LDL Cholesterol Calculated 72 mg/dL (<100); Potassium 3.9 mmol/L (3.4-5.1); Sodium 137 mmol/L (137-145); Total Protein 6.4 g/dL (6.3-8.2); Triglycerides 118 mg/dL (35-150)
== END ==
LOC: LAB 08:02
PROVIDERS: Family Provider Internal Medicine; PCP Family Medicine; Referring Provider Family Medicine; Visit Provider Family Medicine
DX: R39.9 Unspecified symptoms and signs involving the genitourinary system (principal); I10 Essential (primary) hypertension; E11.9 Type 2 diabetes mellitus without complications; Z95.5 Presence of coronary angioplasty implant and graft
CPT/HCPCS: 36415; 80053; 80061; 81001; 85025; 87086

== ENCOUNTER → 2023-07-31 07:12 | Outpatient (CLI) | payer MEDICARE, SELFPAY ==
[2023-07-31 08:02] LABS: Add Manual Diff / Slide Review NO; Basophils Absolute Auto 100 /uL (0-100); Basophils Percent Auto 0.9 % (0-2); Eosinophils Absolute Auto 100 /uL (0-450); Eosinophils Percent Auto 1.9 % (2-4); Hematocrit 37.4 % (36-46); Hemoglobin 12.7 g/dL (12.0-16.0); Lymphocytes Absolute Auto 2000 /uL (1100-4500); Lymphocytes Percent Auto 26.7 % (25-40); Mean Corpuscular Volume 88.4 fL (80-100); Monocytes Absolute Auto 600 /uL (0-900); Monocytes Percent Auto 8.7 % (3-14); Neutrophils Absolute Auto 4600 /uL (1500-7000); Neutrophils Percent Auto 61.8 % (50-75); Platelet Count 225 X10^3/uL (150-400); Red Blood Cell Count 4.23 X10^6/uL (4.0-5.2); Red Cell Distribution Width 13.2 % (11.6-14.8); White Blood Cell Count 7.4 X10^3/uL (4.5-11.0)
[2023-07-31 08:19] LABS: BUN Creatinine Ratio 33.8 (6-22); Blood Urea Nitrogen 24 mg/dL (7-17); Calcium 9.5 mg/dL (8.4-10.2); Carbon Dioxide 30 mmol/L (22-32); Chloride 104 mmol/L (98-107); Cholesterol 174 mg/dL (140-199); Estimated Glomerular Filt Rate > 60 mL/min (>60); Glucose 164 mg/dL (80-110); HDL Cholesterol 63 mg/dL (40-60); HEMOLYSIS < 15 (0-50); LDL Cholesterol Calculated 83 mg/dL (<100); Potassium 4.1 mmol/L (3.4-5.1); Sodium 137 mmol/L (137-145); Triglycerides 140 mg/dL (35-150)
== END ==
LOC: LAB 07:14
PROVIDERS: Family Provider Internal Medicine; PCP Family Medicine; Referring Provider Internal Medicine Cardiovascular Disease; Visit Provider Internal Medicine Cardiovascular Disease
DX: I10 Essential (primary) hypertension (principal); E78.5 Hyperlipidemia, unspecified
CPT/HCPCS: 36415; 80048; 80061; 85025

== ENCOUNTER → 2024-02-13 14:47 | Outpatient (CLI) | payer MEDICARE, SELFPAY ==
--- NOTE | 2024-02-13 14:49 | DI.RAD.S_ITS ---
PROCEDURE: XR HIP W PEL IF DONE RT 2V INDICATIONS: eval interval degeneration since 03/2022 TECHNIQUE: AP pelvis with lateral view(s) of the right hip(s). COMPARISON: [facility], , XR HIP W PEL IF DONE RT 2V, 04/04/2022, 9:52. FINDINGS: Bones: No fractures or dislocations. Pelvic ring appears intact. No suspicious bony lesions. Moderate bilateral hip degenerative change, right greater. Periarticular osteophytes are present. No erosions. Overall appearance is relatively stable compared to prior exam. Soft tissues: The visualized bowel gas pattern is normal. No suspicious soft tissue calcifications. IMPRESSION: Moderate bilateral hip arthritic change. Dictated by: Vivian Wright M.D. on 02/13/2024 at 21:14 Approved by: Vivian Wright M.D. on 02/13/2024 at 21:15
== END ==
PROVIDERS: PCP Family Medicine; Referring Provider Family Medicine; Visit Provider Family Medicine
DX: M16.11 Unilateral primary osteoarthritis, right hip (principal)
CPT/HCPCS: 73502

== ENCOUNTER → 2024-03-12 15:22 | Outpatient (CLI) | payer MEDICARE, SELFPAY | PROVIDERS: PCP Family Medicine; Visit Provider Obstetrics & Gynecology | DX: R30.0 Dysuria (principal); N81.10 Cystocele, unspecified | CPT/HCPCS: 87077; 87086; 87147 ==

== ENCOUNTER 2024-04-03 08:23 | Emergency (ER) | payer MEDICARE, SELFPAY ==
[2024-04-03] VITALS (15 sets, daily range): BP systolic 142–203; BP diastolic 60–88; PULSE 70–89; RESP 12–24; TEMP 36.6; O2SAT 95–99; BMI 24.6
--- NOTE | 2024-04-03 08:32 | ED_ITS ---
HPI - General Adult General Chief complaint: Headache Stated complaint: poss stroke Time Seen by Provider: 04/03/24 08:32 History of Present Illness HPI narrative: 83-year-old woman with a history of hypertension, hyperlipidemia, diabetes prior TIA notes that she went to bed last night in her normal state of health. She woke up this morning at 4:00 a.m. and felt that her right eye was more tender and describes it as ?hard?. She was going about her morning she noticed mild cognitive changes that were concerning, she could not figure out which way to put her underwear on, could not figure out where her tooth face was. She did not note significant motor difficulties, does not report any fluency or dysarthria issues. Related Data Home Medications Medication Instructions Recorded Confirmed ezetimibe 10 mg tablet 10 mg PO DAILY 03/15/23 03/19/24 lisinopril 40 mg tablet 40 mg PO DAILY 03/15/23 03/19/24 rosuvastatin 5 mg tablet 2.5 mg PO QPM 02/13/24 03/12/24 Previous Rx's Medication Instructions Recorded aspirin 81 mg tablet,delayed 81 mg PO QDAY #30 tabs 06/02/17 release metformin 500 mg tablet,extended 500 mg PO 4XD #360 tabs 01/28/24 release 24 hr amlodipine 5 mg tablet 5 mg PO DAILY #90 tabs 03/03/24 linagliptin 5 mg tablet 5 mg PO DAILY #30 tabs 03/19/24 Allergies Allergy/AdvReac Type Severity Reaction Status Date / Time Sulfa (Sulfonamide Allergy Intermediate SKIN Verified 03/19/24 10:37 Antibiotics) BRUISING prednisone [PREDNISONE] Allergy Unknown MORBID Verified 03/19/24 10:37 NIGHTMARES Bvfvfld-RBL-JtD Reductase AdvReac Intermediate muscle Verified 03/19/24 10:37 Inhibitor aches, weakness Review of Systems Review of Systems Narrative: Pertinent positive and negative findings as per HPI Patient History Medical History (Updated 04/03/24 @ 09:37 by Rehana Casey MD) Incomplete prolapse of vaginal vault Hypertension Surgical History (Updated 05/18/23 @ 15:37 by Mary Alcantar DO) History of third molar tooth extraction Status post appendectomy Status post hysterectomy with oophorectomy Family History (Updated 12/03/18 @ 16:11 by Pam Rudd DO) Brother AAA (abdominal aortic aneurysm) Social History (Updated 12/03/18 @ 16:11 by Pam Rudd DO) Smoking Status: Former smoker alcohol intake: current substance use type: does not use Smoking Status: Former smoker Exam Initial Vital Signs Initial Vital Signs: Vital Signs Blood Pressure 203/88 H 04/03/24 08:27 General: Healthy appearing, in no acute distress. Able to give a complete and coherent history. HEENT: Moist mucous membranes, normal sclera with reactive pupils, funduscopic exam bilaterally does not show significant abnormality Respiratory: Lungs are clear to auscultation, no wheezing no rales no rhonchi. Full and symmetrical air movement Cardiac: Regular rate and rhythm no murmurs no bruits Abdomen: Soft, nontender, good bowel tones, no flank pain Skin: Warm and dry, no rashes Neurologic: Grossly neurologically intact with no obvious asymmetries or abnormalities. NIH = 0 Extremities: No trauma, well perfused Psych: Cooperative, appropriate insight and affect Course Orders Ordered: Discontinued Medications Amlodipine Besylate (Amlodipine 5 Mg Tablet) 5 mg PO NOW ONE Stop: 04/03/24 08:52 Last Admin: 04/03/24 09:17 Dose: Not Given Documented By: JULIA Nicardipine HCl 25 mg/ Sodium (Chloride) 250 mls @ 50 mls/hr IV TITRATE ISHMAEL; Protocol Last Titration: 04/03/24 10:17 Dose: 7.5 mg/hr, 75 mls/hr Documented By: Titration: 04/03/24 09:41 Dose: 7.5 mg/hr, 75 mls/hr Documented By: Admin: 04/03/24 09:29 Dose: 5 mg/hr, 50 mls/hr Documented By: JULIA Ondansetron HCl (Ondansetron 4 Mg/2 Ml Inj) 4 mg IV NOW PRN PRN Reason: Nausea And Vomiting Ondansetron HCl (Ondansetron 4 Mg Odt) 4 mg SL NOW PRN PRN Reason: Nausea And Vomiting Vital Signs Vital signs: Vital Signs - 8 hr 04/03/24 08:27 04/03/24 08:29 04/03/24 08:30 Temperature Pulse Rate 77 Respiratory Rate 12 Blood Pressure 203/88 H 189/81 H Pulse Oximetry 98 Oxygen Delivery Method 04/03/24 08:30 04/03/24 08:34 04/03/24 09:07 Temperature 97.8 F Pulse Rate 74 77 77 Respiratory Rate 20 16 24 Blood Pressure 203/88 H Pulse Oximetry 98 99 95 Oxygen Delivery Method Room Air 04/03/24 09:11 04/03/24 09:11 Temperature Pulse Rate 72 Respiratory Rate 18 Blood Pressure 176/81 H Pulse Oximetry 97 Oxygen Delivery Method Medical Decision Making Lab Data 04/03/24 08:41 04/03/24 09:15 Labs: Lab Results 04/03/24 04/03/24 04/03/24 Range/Units 08:41 09:15 10:00 WBC 10.4 (4.5-11.0) X10^3/uL RBC 4.80 (4.0-5.2) X10^6/uL Hgb 14.0 (12.0-16.0) g/dL Hct 42.4 (36-46) % MCV 88.2 (80-100) fL MCH 29.2 (26-34) PG MCHC 33.1 (30-36) % RDW 13.7 (11.6-14.8) % Plt Count 272 (150-400) X10^3/uL Neut % (Auto) 78.2 H (50-75) % Lymph % (Auto) 15.6 L (25-40) % Walsh % (Auto) 4.7 (3-14) % Eos % (Auto) 1.0 L (2-4) % Baso % (Auto) 0.5 (0-2) % Neut # (Auto) 8100 H (7471-9502) /uL Lymph # (Auto) 1600 (5266-4385) /uL Walsh # (Auto) 500 (0-900) /uL Eos # (Auto) 100 (0-450) /uL Baso # (Auto) 100 (0-100) /uL PT 10.6 (9.4-12.5) SECONDS INR 0.9 (0.9-1.3) APTT 31 (25.1-36.5) SECONDS Sodium 134 L (137-145) mmol/L Potassium 3.9 (3.4-5.1) mmol/L Chloride 100 (98-107) mmol/L Carbon Dioxide 28 (22-32) mmol/L BUN 22 H (7-17) mg/dL Creatinine 0.63 (0.52-1.04) mg/dL Estimated GFR > 60 (>60) mL/min BUN/Creatinine Ratio 34.9 H (6-22) Glucose 241 H (80-110) mg/dL Calcium 9.1 (8.4-10.2) mg/dL Magnesium 1.8 (1.6-2.3) mg/dL Total Bilirubin 0.6 (0.2-1.3) mg/dL AST 27 (14-36) IU/L ALT 18 (<35) IU/L Alkaline Phosphatase 64 (38-126) U/L Total Creatine Kinase 34 (30-135) U/L Troponin I < 0.012 (0.01-0.034) ng/mL Total Protein 6.4 (6.3-8.2) g/dL Albumin 4.0 (3.5-5.0) g/dL Globulin 2.4 (1.7-4.1) g/dL Albumin/Globulin Ratio 1.7 (1.0-2.8) Urine Color Yellow Urine Appearance Clear Urine pH 7.5 (4.5-8.0) Ur Specific [place] 1.010 (1.000-1.035) Urine Protein Negative (Negative) Urine Glucose (UA) 1+ H (Negative) g/dL Urine Ketones Negative (NEGATIVE) Urine Occult Blood Negative (Negative) Urine Nitrate Negative (Negative) Urine Bilirubin Negative (NEGATIVE) Urine Urobilinogen 0.2 (0.2) E.U./dL Ur Leukocyte Esterase Trace H (NEGATIVE) Urine RBC None seen (0-5/HPF) Urine WBC 0-1/hpf (0-5/HPF) Ur Squamous Epith Cells None seen (0-5/HPF) Urine Bacteria None seen (None) Ur Culture Indicated? Cult not indicated Vol Urine Centrifuged 10ml (spun) U Opiates 300ng/mL cut Negative (Negative) Ur Oxycodone Screen Negative (Negative) Urine Methadone Screen Negative (Negative) Ur Barbiturates Screen Negative (Negative) U Tricyclic Antidepress Negative (Negative) Ur Phencyclidine Scrn Negative (Negative) Ur Amphetamines Screen Negative (Negative) U Methamphetamines Scrn Negative (Negative) Ur MDMA Scrn (Ecstasy) Negative (Negative) U Benzodiazepines Scrn Negative (Negative) Urine Cocaine Screen Negative (Negative) U Marijuana (THC) Screen Negative (Negative) Urine Specific [place] (Normal) Ur Creatinine (Normal) 04/03/24 Range/Units 10:00 WBC (4.5-11.0) X10^3/uL RBC (4.0-5.2) X10^6/uL Hgb (12.0-16.0) g/dL Hct (36-46) % MCV (80-100) fL MCH (26-34) PG MCHC (30-36) % RDW (11.6-14.8) % Plt Count (150-400) X10^3/uL Neut % (Auto) (50-75) % Lymph % (Auto) (25-40) % Walsh % (Auto) (3-14) % Eos % (Auto) (2-4) % Baso % (Auto) (0-2) % Neut # (Auto) (7224-3893) /uL Lymph # (Auto) (1226-5113) /uL Walsh # (Auto) (0-900) /uL Eos # (Auto) (0-450) /uL Baso # (Auto) (0-100) /uL PT (9.4-12.5) SECONDS INR (0.9-1.3) APTT (25.1-36.5) SECONDS Sodium (137-145) mmol/L Potassium (3.4-5.1) mmol/L Chloride (98-107) mmol/L Carbon Dioxide (22-32) mmol/L BUN (7-17) mg/dL Creatinine (0.52-1.04) mg/dL Estimated GFR (>60) mL/min BUN/Creatinine Ratio (6-22) Glucose (80-110) mg/dL Calcium (8.4-10.2) mg/dL Magnesium (1.6-2.3) mg/dL Total Bilirubin (0.2-1.3) mg/dL AST (14-36) IU/L ALT (<35) IU/L Alkaline Phosphatase (38-126) U/L Total Creatine Kinase (30-135) U/L Troponin I (0.01-0.034) ng/mL Total Protein (6.3-8.2) g/dL Albumin (3.5-5.0) g/dL Globulin (1.7-4.1) g/dL Albumin/Globulin Ratio (1.0-2.8) Urine Color Urine Appearance Urine pH Normal (4.5-8.0) Ur Specific [place] (1.000-1.035) Urine Protein (Negative) Urine Glucose (UA) (Negative) g/dL Urine Ketones (NEGATIVE) Urine Occult Blood (Negative) Urine Nitrate (Negative) Urine Bilirubin (NEGATIVE) Urine Urobilinogen (0.2) E.U./dL Ur Leukocyte Esterase (NEGATIVE) Urine RBC (0-5/HPF) Urine WBC (0-5/HPF) Ur Squamous Epith Cells (0-5/HPF) Urine Bacteria (None) Ur Culture Indicated? Vol Urine Centrifuged U Opiates 300ng/mL cut (Negative) Ur Oxycodone Screen (Negative) Urine Methadone Screen (Negative) Ur Barbiturates Screen (Negative) U Tricyclic Antidepress (Negative) Ur Phencyclidine Scrn (Negative) Ur Amphetamines Screen (Negative) U Methamphetamines Scrn (Negative) Ur MDMA Scrn (Ecstasy) (Negative) U Benzodiazepines Scrn (Negative) Urine Cocaine Screen (Negative) U Marijuana (THC) Screen (Negative) Urine Specific [place] Normal (Normal) Ur Creatinine Normal (Normal) Point of Care Testing Glucose POC 224 Urine Dip Bedside Urine Glucose 100 mg/dl Bedside Urine Bilirubin - Negative Bedside Urine Ketone - Negative Urine Specific [place] 1.005 Bedside Urine Occult Blood - Negative Bedside Urine pH 8.0 Bedside Urine Protein - Negative Bedside Urine Urobilinogen - Negative Bedside Urine Nitrite - Negative Bedside Urine Leukocytes +/- 15 Esterase Point of care testing: Point of Care Testing Glucose POC 224 Urine Dip Bedside Urine Glucose 100 mg/dl Bedside Urine Bilirubin - Negative Bedside Urine Ketone - Negative Urine Specific [place] 1.005 Bedside Urine Occult Blood - Negative Bedside Urine pH 8.0 Bedside Urine Protein - Negative Bedside Urine Urobilinogen - Negative Bedside Urine Nitrite - Negative Bedside Urine Leukocytes +/- [address] scan - head: Radiologist's Impression: PROCEDURE: CT HEAD/BRAIN WO CON INDICATIONS: Positive BE-FAST, Stroke symptoms TECHNIQUE: Noncontrast 4.5 mm thick angled axial sections acquired from the foramen magnum to the vertex, with coronal and sagittal reformats. For radiation dose reduction, the following was used: automated exposure control, adjustment of mA and/or kV according to patient size. COMPARISON: [facility], CT, HEAD WITHOUT CONTRAST, 06/01/2017, 13:09. FINDINGS: Image quality: Diagnostic. CSF spaces: Basal cisterns are patent. No extra-axial fluid collections. The ventricles are symmetric in size and shape. Small right arachnoid cyst in the posterior fossa. Brain: Focus of hemorrhage at the cuadra-white matter junction of the right occipital lobe measuring 1.0 x 1.4 x 2.0 centimeter. Small amount vasogenic edema surrounding this region. Associated small volume subarachnoid hemorrhage superior to this region. Prior left basal ganglia infarct. No midline shift. No herniation. Skull and face: Calvarium and visualized facial bones appear intact, without suspicious lesions. Sinuses: Visualized sinuses and mastoids are clear. IMPRESSION: Focus of hemorrhage at the cuadra-white matter junction of the right occipital lobe measuring 1.0 x 1.4 x 2.0 centimeter. Small amount vasogenic edema surrounding this region. Differential includes a focus intraparenchymal hemorrhage a due to amyloid deposition or hemorrhagic metastasis. Small amount of subarachnoid hemorrhage overlying this region. No midline shift. No herniation. Findings discussed with Dr. Nice at 9:06 a.m. On 04/03/2024. Dictated by: Zach Carrillo M.D. on 04/03/2024 at 9:03 CT angiogram head neck: Radiologist's Impression: PROCEDURE: CT ANGIO HEAD AND NECK INDICATIONS: stroke TECHNIQUE: After the administration of intravenous contrast, 1 mm thick sections acquired from the aortic arch through the [place] of [place]. 3-dimensional lrckpxy-lcqwxbucz-ryrpltdxrm (MIP) and/or volume rendering reformats were acquired of the central intracranial vasculature and neck separately. For radiation dose reduction, the following was used: automated exposure control, adjustment of mA and/or kV according to patient size. COMPARISON: None. FINDINGS: Image quality: Diagnostic. BRAIN: Similar findings of intraparenchymal hemorrhage in the right occipital lobe, with superimposed subarachnoid hemorrhage. No midline shift or herniation. HEAD CT ANGIOGRAPHY: Anterior circulation: Intracranial internal carotid arteries are normal in size and flow. The flow within the paired anterior cerebral arteries is normal and symmetric. The flow within the middle cerebral arteries is normal and symmetric. The anterior communicating artery is seen. No aneurysms are seen. Atherosclerotic calcification of the cavernous internal carotid arteries. Posterior circulation: Visualized portions of the vertebral arteries demonstrate normal caliber, and join to form a normal appearing basilar artery. Flow within the posterior cerebral arteries is normal and symmetric. No aneurysms are seen. NECK CT ANGIOGRAPHY: Carotid system: The great vessels demonstrate a conventional anatomy as they arise from the aortic arch. The origins of the common carotid arteries appear patent. The common carotid arteries demonstrate normal caliber and courses. The bifurcation regions are both widely patent. The internal carotid arteries demonstrate normal calibers and courses. Posterior circulation: The origins of the vertebral arteries both appear widely patent. The more superior extracranial portions of both vertebral arteries also demonstrate normal courses and calibers. They join to form a normal appearing basilar artery. Soft tissues: Visualized neck soft tissues demonstrate no suspicious abnormalities. Bones: No suspicious bony lesions. Visualized cervical spine appears normally aligned. IMPRESSION: No significant intracranial arterial abnormality is seen. No significant abnormality is seen within the arteries of the neck. Please see same day head CT regarding findings of intraparenchymal hemorrhage and subarachnoid hemorrhage. No significant interval change and no herniation or midline shift. Any quantitative measurements of stenosis were performed using NASCET criteria. Dictated by: Zach Carrillo M.D. on 04/03/2024 at 9:30 MDM Narrative Medical decision making narrative: CC: Tightness/pain/hardness involving the right eye and mild cognitive deficits since awakening at 4:30 a.m. this morning Complicating co-morbidities: Diabetes, hypertension, hyperlipidemia Data collected from: patient, Medical records reviewed: Primary care notes from March 03 and March 19 are reviewed Differential considered: Retinal hemorrhage, retinal artery occlusion, eye trauma, eye infection, shingles, stroke Exam documented above, pertinent findings include: Exam is relatively benign. NIH is 0 Lab Test results independently reviewed as above. Pertinent findings: CBC is unremarkable PT and PTT are within normal limits Independently reviewed EKG: Sinus rhythm at a rate of 74 no acute ischemic changes Imaging studies independently reviewed: Focus of hemorrhage at the cuadra-white matter junction of the right occipital lobe measuring 1.0 x 1.4 x 2.0 centimeter. Small amount vasogenic edema surrounding this region. Differential includes a focus intraparenchymal hemorrhage a due to amyloid deposition or hemorrhagic metastasis.Small amount of subarachnoid hemorrhage overlying this region. No midline shift. No herniation. Time Line: Called to radiology suite 9:[address] scan was being done. Concern for right occipital bleed appreciated 9:06 am confirmed bleed with radiologist no other findings. Small subarachnoid question underlying lesion, no shift 9:07 stroke TeleMed consult requested 9:[address] Patel, stroke Neurology at [facility] 9:10 discussion with the patient and confirmed willingness to transfer patient 9:[address] Patel, patient can be accepted ED to ED transfer to [facility] for additional imaging and neurosurgical consultation. Did not recommend any seizure prophylaxis at this time. Did recommend holding any aspirin, nicardipine has been initiated with goals of systolic blood pressure between 120 and 160. 9:18 transport discussion arrangements initiated Consultations: Stroke Neurology [facility] Treatments: Nicardipine Re-evaluations: 935 transport expected in 20 minutes. Patient is re-evaluated, questions are answered to best of my ability. Understands need for transfer. Discussion: 83-year-old woman with rather subtle findings this morning head CT showing a right occipital subarachnoid bleed, possible underlying abnormality. Nicardipine started for blood pressure control goal 160-120 systolic. Findings reviewed with the patient and her . NIH score throughout her visit in the ER is 0. Patient will be transported to [facility] ED to ED for treatment of her spontaneous subarachnoid hemorrhage Additional Information: on arrival. 820am NIH Stroke Scale * 1a. LOC: Patient is alert and keenly responsive (0) * 1b. LOC Questions: Patient answers both LOC questions accurately (0) * 1c. LOC Commands: Patient performs both tasks correctly (0) * 2. Best Gaze: Normal (0) * 3. ?Visual: No visual loss (0) * 4. ?Facial palsy: Normal symmetrical movements (0) * 5. ?Motor arm: No drift (0) * 6. ?Motor leg: No drift (0) * 7. ?Limb ataxia: Absent (0) * 8. ?Sensory: Normal (0) * 9. ?Best language: No aphasia; normal (0) * 10. ?Dysarthria: Normal (0) * 11. ?Extinction and inattention: No abnormality (0) Critical Care Time Critical Care Time Critical Care Time: Yes Total Critical Care Time: 37 Attestation: Critical care time is separate from other billable procedures. There is a high probability of a significant, sudden or life-threatening deterioration that requires my full and direct attention, intervention and personal management. This critical care time includes consultation with family and other consulting doctors, review of records, and interpretation of data from labs, EKGs and imaging as well as managements of acute subarachnoid hemorrhage, arranging transfer and parenteral medications for blood pressure control Discharge Plan Departure Patient Disposition: [facility] Clinical Impression: Subarachnoid hemorrhage Prescriptions: No Action lisinopril 40 mg tablet 40 mg PO DAILY ezetimibe 10 mg tablet 10 mg PO DAILY rosuvastatin 5 mg tablet 2.5 mg PO QPM Hold Instructions: Pt stopped November 2023 by self aspirin 81 MG tablet,delayed release (DR/EC) 81 mg PO QDAY Qty: 30 0RF metformin 500 mg tablet extended release 24 hr 500 mg PO 4XD Qty: 360 0RF amlodipine 5 mg tablet 5 mg PO DAILY Qty: 90 0RF linagliptin 5 mg tablet 5 mg PO DAILY Qty: 30 3RF Referrals: Mary Alcantar DO [Primary Care Provider] -
--- NOTE | 2024-04-03 08:34 | DI.RAD.S_ITS ---
PROCEDURE: XR CHEST 1V INDICATIONS: Possible stroke TECHNIQUE: One view of the chest was acquired. COMPARISON: [facility], , XR CHEST 1V, 12/03/2018, 15:37. [facility], , CHEST 2 VIEW, 05/04/2015, 19:55. FINDINGS: Surgical changes and devices: None. Lungs and pleura: Lungs are clear considering reduced inspiratory volume. No pleural effusions or pneumothorax. Mediastinum: Mediastinal contours appear normal. Heart size is normal. Bones and chest wall: No suspicious bony lesions. Overlying soft tissues appear unremarkable. IMPRESSION: No acute cardiopulmonary abnormality is seen. Dictated by: Maximus Herrera M.D. on 04/03/2024 at 9:13 Approved by: Maximus Herrera M.D. on 04/03/2024 at 9:14
--- NOTE | 2024-04-03 08:34 | EKG_ITS ---
[address] [address] Test Date: 2024-04-03 Pat Name: Alice Rangel Department: [facility] Room: Gender: Female Digital Technician: LINDA : 1940 Requested By: Order Number: [id number] Reading MD: Adelfo San Measurements Intervals [place] Rate: 71 P: 79 HI: QRS: 6 QRSD: 86 T: 44 QT: 414 QTc: 449 Interpretive Statements Atrial flutter Cannot rule out Anterior infarct , age undetermined Electronically Signed On 04-04-2024 7:21:46 PST by Adelfo San
--- NOTE | 2024-04-03 08:43 | DI.CT.S_ITS ---
PROCEDURE: CT ANGIO HEAD AND NECK INDICATIONS: stroke TECHNIQUE: After the administration of intravenous contrast, 1 mm thick sections acquired from the aortic arch through the [place] of [place]. 3-dimensional efvwyhr-fcnvjjwdl-duacwizycz (MIP) and/or volume rendering reformats were acquired of the central intracranial vasculature and neck separately. For radiation dose reduction, the following was used: automated exposure control, adjustment of mA and/or kV according to patient size. COMPARISON: None. FINDINGS: Image quality: Diagnostic. BRAIN: Similar findings of intraparenchymal hemorrhage in the right occipital lobe, with superimposed subarachnoid hemorrhage. No midline shift or herniation. HEAD CT ANGIOGRAPHY: Anterior circulation: Intracranial internal carotid arteries are normal in size and flow. The flow within the paired anterior cerebral arteries is normal and symmetric. The flow within the middle cerebral arteries is normal and symmetric. The anterior communicating artery is seen. No aneurysms are seen. Atherosclerotic calcification of the cavernous internal carotid arteries. Posterior circulation: Visualized portions of the vertebral arteries demonstrate normal caliber, and join to form a normal appearing basilar artery. Flow within the posterior cerebral arteries is normal and symmetric. No aneurysms are seen. NECK CT ANGIOGRAPHY: Carotid system: The great vessels demonstrate a conventional anatomy as they arise from the aortic arch. The origins of the common carotid arteries appear patent. The common carotid arteries demonstrate normal caliber and courses. The bifurcation regions are both widely patent. The internal carotid arteries demonstrate normal calibers and courses. Posterior circulation: The origins of the vertebral arteries both appear widely patent. The more superior extracranial portions of both vertebral arteries also demonstrate normal courses and calibers. They join to form a normal appearing basilar artery. Soft tissues: Visualized neck soft tissues demonstrate no suspicious abnormalities. Bones: No suspicious bony lesions. Visualized cervical spine appears normally aligned. IMPRESSION: No significant intracranial arterial abnormality is seen. No significant abnormality is seen within the arteries of the neck. Please see same day head CT regarding findings of intraparenchymal hemorrhage and subarachnoid hemorrhage. No significant interval change and no herniation or midline shift. Any quantitative measurements of stenosis were performed using NASCET criteria. Dictated by: Zach Carrillo M.D. on 04/03/2024 at 9:30 Approved by: Zach Carrillo M.D. on 04/03/2024 at 9:33
[2024-04-03 08:52] LABS: Add Manual Diff / Slide Review NO; Basophils Absolute Auto 100 /uL (0-100); Basophils Percent Auto 0.5 % (0-2); Eosinophils Absolute Auto 100 /uL (0-450); Hematocrit 42.4 % (36-46); Lymphocytes Absolute Auto 1600 /uL (1100-4500); Lymphocytes Percent Auto 15.6 % (25-40); Mean Corpuscular HGB Conc 33.1 % (30-36); Mean Corpuscular Hemoglobin 29.2 PG (26-34); Mean Corpuscular Volume 88.2 fL (80-100); Monocytes Absolute Auto 500 /uL (0-900); Monocytes Percent Auto 4.7 % (3-14); Neutrophils Absolute Auto 8100 /uL (1500-7000); Neutrophils Percent Auto 78.2 % (50-75); Platelet Count 272 X10^3/uL (150-400); Red Cell Distribution Width 13.7 % (11.6-14.8); White Blood Cell Count 10.4 X10^3/uL (4.5-11.0)
[2024-04-03 09:00] LABS: INR 0.9 (0.9-1.3); Prothrombin Time 10.6 SECONDS (9.4-12.5)
[2024-04-03 09:02] LABS: PTT Partial Thromboplastin Tim 31 SECONDS (25.1-36.5)
[2024-04-03] MEDS: NICARDIPINE 25 MG in SODIUM CHLORIDE 0.9% 240 ML 50 MG IV (09:29)
[2024-04-03 09:38] LABS: Alanine Aminotransferase 18 IU/L (<35); Albumin Globulin Ratio 1.7 (1.0-2.8); Alkaline Phosphatase 64 U/L (38-126); Aspartate Aminotransferase 27 IU/L (14-36); BUN Creatinine Ratio 34.9 (6-22); Bilirubin Total 0.6 mg/dL (0.2-1.3); Blood Urea Nitrogen 22 mg/dL (7-17); Calcium 9.1 mg/dL (8.4-10.2); Carbon Dioxide 28 mmol/L (22-32); Chloride 100 mmol/L (98-107); Creatine Kinase 34 U/L (30-135); Estimated Glomerular Filt Rate > 60 mL/min (>60); Globulin 2.4 g/dL (1.7-4.1); Glucose 241 mg/dL (80-110); HEMOLYSIS 23 (0-50); Magnesium 1.8 mg/dL (1.6-2.3); Potassium 3.9 mmol/L (3.4-5.1); Sodium 134 mmol/L (137-145); Total Protein 6.4 g/dL (6.3-8.2)
[2024-04-03 09:49] LABS: Troponin I < 0.012 ng/mL (0.01-0.034)
[2024-04-03 10:10] LABS: Appearance Urine UA CLEAR; Bilirubin Urine UA NEGATIVE (NEGATIVE); Color Urine UA YELLOW; Glucose Urine UA 1+ g/dL (Negative); Ketones Urine UA NEGATIVE (NEGATIVE); Leukocyte Esterase Urine UA TRACE (NEGATIVE); Nitrite Urine UA NEGATIVE (Negative); Occult Blood Urine UA NEGATIVE (Negative); Protein Urine UA NEGATIVE (Negative); Urobilinogen Urine UA 0.2 E.U./dL (0.2)
[2024-04-03 10:12] LABS: pH Urine UA 7.5 (4.5-8.0)
[2024-04-03 10:14] LABS: UR Morphine/Opiate cutoff 300 Negative (Negative); Ur Creatinine Normal (Normal); Ur Specific Gravity Normal (Normal); Urine Amphetamines Negative (Negative); Urine Barbiturates Negative (Negative); Urine Benzodiazepines Negative (Negative); Urine Cocaine Negative (Negative); Urine MDMA Negative (Negative); Urine Methadone Negative (Negative); Urine Methamphetamines Negative (Negative); Urine Oxycodone Negative (Negative); Urine Phencyclidine Negative (Negative); Urine Tetrahydrocannabinol Negative (Negative); Urine Tricyclic Antidepressant Negative (Negative); Urine pH Normal (Normal)
[2024-04-03 10:18] LABS: Bacteria Urine None Seen; Culture Indicated Urine Cult Not Indicated; RBC Urine None Seen (0-5/HPF); Squamous Epithelial Cell Urine None Seen (0-5/HPF); Urine Volume 10mL (spun); WBC Urine 0-1/HPF (0-5/HPF)
== END 2024-04-03 10:19 | disposition short-term general hospital (02) ==
PROVIDERS: Emergency Provider Emergency Medicine; PCP Family Medicine
DX: I60.9 Nontraumatic subarachnoid hemorrhage, unspecified (principal); I10 Essential (primary) hypertension
CPT/HCPCS: 70450; 70496; 70498; 71045; 80053; 80305; 81001; 81003; 82550; 82962; 83735; 84484; 85025; 85610; 85730; 93005; 96365; 99284; 99291; Q9967

== ENCOUNTER 2024-05-15 08:43 | Outpatient (RCR) | payer MEDICARE, SELFPAY ==
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
== END 2024-05-22 11:17 | disposition home or self-care (01) ==
LOC: OT 08:43
PROVIDERS: Family Provider Family Medicine; PCP Family Medicine; Referring Provider Family Medicine; Visit Provider Family Medicine
DX: I60.9 Nontraumatic subarachnoid hemorrhage, unspecified (principal); Z86.73 Personal history of transient ischemic attack (TIA), and cerebral infarction without residual deficits; I62.9 Nontraumatic intracranial hemorrhage, unspecified
CPT/HCPCS: 97165

== ENCOUNTER → 2024-05-22 06:41 | Outpatient (CLI) | payer MEDICARE, SELFPAY ==
--- NOTE | 2024-05-22 06:43 | DI.ECHO.S_ITS ---
[place] [facility] : : [address] : : [place] : : [id number] : : Phone: [phone] Echocardiogram Report + + :Name: IAN STEWART Study Date: 05/22/2024 Height: 64 in : :[facility] ReadingLocation: Weight: 149 lb : : Gender: Female BSA: 1.7 m2 : :: 1940 Age: 83 yrs BP: 154/83 mmHg: :Reason For Study: STROKE : :Ordering Physician: TED, : :JULIA Performed By: Levi Meyer : :Referring: JULIA JEAN : + + Interpretation Summary The left ventricle is normal in size. The ejection fraction is estimated to be 60-65%. There are no focal wall motion abnormalities. Diastolic parameters suggest a pseudonormalization pattern, consistent with probable elevated filling pressures. The right ventricle is normal in size and function. The right ventricular systolic pressure is estimated to be at least 38 mmHg based on an estimated right atrial pressure of 3 mm Hg. The left atrium is moderately dilated. There is no Doppler evidence for an interatrial shunt. There is mild mitral regurgitation. The aortic root is normal size. Procedure: A two-dimensional transthoracic echocardiogram with color flow and Doppler was performed. The study quality was technically good. Comparison is made with the echocardiogram of 02/09/2022. The patient was in normal sinus rhythm during the exam. Left Ventricle: The left ventricle is normal in size. There is normal left ventricular wall thickness. There is no ventricular septal defect visualized. The ejection fraction is estimated to be 60-65%. There are no focal wall motion abnormalities. Diastolic parameters suggest a pseudonormalization pattern, consistent with probable elevated filling pressures. Right Ventricle: The right ventricle is normal in size and function. Atria: The left atrium is moderately dilated. Right atrial size is normal. There is no Doppler evidence for an interatrial shunt. Mitral Valve: There is moderate mitral annular calcification. There is mild mitral regurgitation. Aortic Valve: The aortic valve is trileaflet. The aortic valve is mildly calcified. The aortic valve opens well. There is no hemodynamically significant valvular aortic stenosis. No aortic regurgitation is present. Tricuspid Valve: The tricuspid valve leaflets are thin and pliable. There is mild tricuspid regurgitation. The right ventricular systolic pressure is estimated to be at least 38 mmHg based on an estimated right atrial pressure of 3 mm Hg. Pulmonic Valve: The pulmonic valve leaflets are thin and pliable; valve motion is normal. There is trace pulmonic regurgitation. Great Vessels: The aortic root is normal size. The dimensions of the ascending aorta are normal. The pulmonary artery is normal size. The IVC is of normal diameter and collapses greater than 50% with a sniff. This suggests a low right atrial pressure of 3 mm Hg. Pericardium/ Pleura There is no pericardial effusion. There is no pleural effusion. MMode/2D Measurements & Calculations LVIDd: 4.4 cm LVOT diam: 1.9 cm LVIDs: 2.8 cm Ao root diam: 2.5 cm FS: 38.1 % asc Aorta Diam: 2.9 cm EPSS: 0.26 cm Ao Arch Diam (Prox Trans): 2.3 cm IVSd: 1.0 cm LVPWd: 0.89 cm LV to. diameter/BSA (cm/m^2): 2.6 LV sys. diameter/BSA (cm/m^2): 1.6 LA A2 area: 23.7 cm2 RA long axis: 4.7 cm LA A4 area: 24.3 cm2 RA area: 13.8 cm2 LA length (vol): 5.9 cm RA vol: 34.3 ml LA vol: 82.7 ml RA : 19.9 ml/m2 LA vol index: 47.9 ml/m2 IVC diam: 1.3 cm RVD1 (basal): 3.8 cm RVD2 (mid): 3.5 cm TAPSE: 2.4 cm Doppler Measurements & Calculations Ao V2 max: 198.2 cm/sec LVOT Max Michael: 105.3 cm/sec Ao V2 mean: 148.0 cm/sec LV V1 max P.4 mmHg Ao max P.7 mmHg LV V1 VTI: 28.7 cm Ao mean P.6 mmHg ERNESTINE(I,D): 1.6 cm2 Ao V2 VTI: 48.4 cm ERNESTINE(V,D): 1.4 cm2 sev ratio: 0.59 ERNESTINE indexed to BSA (cm^2/m^2): 0.93 MV E max michael: 116.2 cm/sec TR max michael: 296.0 cm/sec MV A max michael: 103.1 cm/sec TR max P.0 mmHg MV E/A: 1.1 PA V2 max: 68.6 cm/sec Med Peak E' Michael: 7.0 cm/sec PA V2 mean: 54.0 cm/sec E/E' med: 16.5 PA mean P.2 mmHg Lat Peak E' Michael: 6.0 cm/sec PA pr(Accel): -4.9 mmHg E/E' lat: 19.3 E/e' average: 17.9 MV dec time: 0.21 sec SV(LVOT): 77.4 ml Reading Physician:07:36 PM
== END ==
PROVIDERS: Family Provider Family Medicine; PCP Family Medicine; Referring Provider Family Medicine; Visit Provider Family Medicine
DX: G45.9 Transient cerebral ischemic attack, unspecified (principal); I08.1 Rheumatic disorders of both mitral and tricuspid valves; E11.9 Type 2 diabetes mellitus without complications; I10 Essential (primary) hypertension; Z95.5 Presence of coronary angioplasty implant and graft
CPT/HCPCS: 93306

== ENCOUNTER → 2024-05-22 08:44 | Outpatient (CLI) | payer MEDICARE, SELFPAY ==
--- NOTE | 2024-05-22 08:47 | DI.CT.S_ITS ---
PROCEDURE: CT IVP A/P W/WO INDICATIONS: 83 y/o F w/ left upper pole filling defect, please eval. TECHNIQUE: Optional 5 mm thick noncontrast images acquired from the diaphragm to the symphysis pubis. After the administration of intravenous contrast, 5 mm thick images acquired from the diaphragm to the symphysis pubis after a 10-minute delay. 2 mm thick coronal and sagittal reformats were then performed of the kidneys and ureters. For radiation dose reduction, the following was used: automated exposure control, adjustment of mA and/or kV according to patient size. COMPARISON: [facility], CT, CT CHEST WO CON, 05/22/2024, 9:26. FINDINGS: Image quality: Diagnostic. Kidneys and Ureters: Both kidneys are normal in size, generally without hydronephrosis. However, there is a moderate-sized staghorn calculus involving the upper collecting system of the left kidney measuring up to 2.3 x 1.4 cm, with focal hydronephrosis at the upper pole collecting system of the left kidney as a result. Additionally, there are bilateral peripelvic cysts mildly impinging on the external borders of the collecting system elsewhere. No infection or neoplasm is suspected by CT appearance. No perinephric fat stranding. There is normal bilateral renal enhancement. Renal calyces otherwise appear normal in morphology when filled with contrast. Opacified portions of both ureters demonstrate normal caliber Bladder: Bladder wall thickness is normal. No calcified bladder stones. OTHER: Lower chest: Unremarkable. Liver: No solid mass. Gallbladder: No radiopaque gallstones or wall thickening. Biliary ducts: No biliary dilation. Pancreas: No ductal dilation. Spleen: Size is within normal limits. Adrenal Glands: No adrenal nodules. Stomach and Bowel: Normal colonic caliber, without significant wall thickening. Peritoneum: No abnormal intraperitoneal fluid. No free air. Ventral Wall: No hernia. Abdominal Nodes: No retroperitoneal or mesenteric adenopathy by size criteria. Vessels: Aorta and inferior vena cava are normal in size. PELVIS: Pelvic Organs: Apparent prior hysterectomy. Pelvic fat prolapses centrally, inferiorly towards the vaginal introitus. Pelvic Nodes: No enlarged lymph nodes. Miscellaneous: No inguinal hernias are seen. Bones: No aggressive osseous abnormality. IMPRESSION: 1. Moderate-sized left upper renal collecting system staghorn calculus is associated with focal [id number] hydronephrosis at the upper pole collecting system of the left kidney. Additional impingement on the collecting system margins is present bilaterally by peripelvic cysts. No CT evidence of active infection at this time. 2. Apparent prior hysterectomy, low midline pelvic fat invaginate inferiorly towards the vaginal introitus. Dictated by: Maximus Herrera M.D. on 05/24/2024 at 7:27 Approved by: Maximus Herrera M.D. on 05/24/2024 at 7:38
[2024-05-22 09:19] LABS: Estimated Glomerular Filt Rate > 60 mL/min (>60)
== END ==
PROVIDERS: Radiology Diagnostic Radiology; Family Provider Family Medicine; PCP Family Medicine; Referring Provider Urology; Visit Provider Urology
DX: N13.2 Hydronephrosis with renal and ureteral calculous obstruction (principal); R93.429 Abnormal radiologic findings on diagnostic imaging of unspecified kidney
CPT/HCPCS: 36415; 74178; 82565; Q9967

== ENCOUNTER → 2024-05-22 08:47 | Outpatient (CLI) | payer MEDICARE, SELFPAY ==
--- NOTE | 2024-05-22 08:48 | DI.CT.S_ITS ---
PROCEDURE: CT CHEST WO CON INDICATIONS: Evaluate for pulmonary nodules. TECHNIQUE: Noncontrast 5 mm thick sections acquired from the pulmonary apices to the posterior costophrenic angles. 1 mm lung window, 5 mm thick coronal and sagittal and 7 mm axial MIP reformats were then acquired. For radiation dose reduction, the following was used: automated exposure control, adjustment of mA and/or kV according to patient size. COMPARISON: [facility], CT, THORAX WITHOUT CONTRAST, 05/23/2017, 9:44. [facility], CR, XR CHEST 1V, 04/03/2024, 8:37. FINDINGS: Image quality: Diagnostic. Lower Neck: No enlarged lymph nodes. Thyroid: No thyroid nodules which require sonographic follow up, per consensus guidelines. Axillae: No enlarged lymph nodes. Chest Wall: Unremarkable. Bones: Unremarkable. Lungs and Pleura: No pneumothorax or pleural effusions. No consolidation or suspicious nodules. There is a punctate calcified granuloma posterior right lung apex, previously present. There is a minimal degree of linear scarring lingular segment left upper lobe, also previously present. Heart: Heart size is normal. No pericardial effusion. Thoracic Vessels: The aorta and pulmonary arteries demonstrate normal size. Mediastinum and Edel: No enlarged lymph nodes. Esophagus: No wall thickening. No hiatal hernia. Upper Abdomen: Visualized upper abdomen solid organs and bowel loops appear normal except for a large upper left renal partially visualized staghorn calculus, better visualized by CT scanning that includes the abdomen/pelvis same day. IMPRESSION: No suspicious pulmonary nodules. Previously present punctate posterior right lung apex calcified granuloma, and minimal linear scarring also previously present lingular segment left upper lobe. No follow-up recommended unless the patient is enrolled in a screening CT program for early detection of lung carcinoma due to longstanding smoking history. Partially visualized large presumed staghorn calculus upper left kidney, please refer to dedicated CT targeting that area performed same day. Dictated by: Maximus Herrera M.D. on 05/23/2024 at 7:51 Approved by: Maximus Herrera M.D. on 05/23/2024 at 8:00
== END ==
PROVIDERS: Family Provider Family Medicine; PCP Family Medicine; Referring Provider Family Medicine; Visit Provider Family Medicine
DX: G45.9 Transient cerebral ischemic attack, unspecified (principal); I08.1 Rheumatic disorders of both mitral and tricuspid valves; N13.2 Hydronephrosis with renal and ureteral calculous obstruction; R91.1 Solitary pulmonary nodule; R93.429 Abnormal radiologic findings on diagnostic imaging of unspecified kidney; I10 Essential (primary) hypertension; E11.9 Type 2 diabetes mellitus without complications; Z95.5 Presence of coronary angioplasty implant and graft
CPT/HCPCS: 36415; 71250; 74178; 82565; 93306; Q9967

== ENCOUNTER → 2024-05-25 09:34 | Outpatient (CLI) | payer MEDICARE, SELFPAY ==
--- NOTE | 2024-05-25 09:35 | DI.MRI.S_ITS ---
PROCEDURE: MR HEAD/BRAIN WO/W CON INDICATIONS: Follow-up brain hematoma (last imaging 03/2024) TECHNIQUE: Noncontrast axial T1 spin echo, axial T2 fast spin echo, sagittal and axial FLAIR, coronal T2 fast spin echo, axial gradient echo, axial diffusion and ADC through the brain. After the administration of contrast, axial and coronal and sagittal T1 spin echo with fat saturation through the brain. COMPARISON: [facility], MR, STROKE PROTOCOL, 06/01/2017, 15:23. [facility], CT, CT HEAD/BRAIN WO CON, 04/03/2024, 8:57. [facility], CT, CT ANGIO HEAD AND NECK, 04/03/2024, 8:57. FINDINGS: Image quality: Excellent. CSF spaces: Basal cisterns are patent. No extra-axial fluid collections. Ventricles are normal in size and shape. Brain: Within the region of prior hemorrhage within the right occipital region, there is now seen encephalomalacia and hemosiderin deposition. There is a mild degree of curvilinear enhancement seen within this region. No new hemorrhage is seen. No midline shift. No intracranial masses. There is cerebral volume loss for age. There is periventricular white matter chronic small vessel ischemic change. The brainstem appears normal. Diffusion-weighted images demonstrate no acute infarct. No chronic ischemic insults. Normal intravascular flow voids are present. Skull and face: Calvarial marrow is normal in signal. Orbits appear normal. Incidental note is made of hyperostosis frontalis. This is not considered to be pathologic in a woman of this age. Sinuses: Sinuses and mastoids appear clear. IMPRESSION: At the site of the prior brain parenchymal hemorrhage within the right occipital lobe, there is now seen encephalomalacia with hemosiderin deposition. A mild degree of curvilinear enhancement is seen, which is attributed to a gliotic response. These imaging findings are compatible with expected evolution of the prior intraparenchymal hemorrhage. Dictated by: Parth Rojas M.D. on 05/26/2024 at 13:18 Approved by: Parth Rojas M.D. on 05/26/2024 at 13:21
== END ==
PROVIDERS: Family Provider Family Medicine; PCP Family Medicine; Referring Provider Family Medicine; Visit Provider Family Medicine
DX: G45.9 Transient cerebral ischemic attack, unspecified (principal); G93.89 Other specified disorders of brain; I10 Essential (primary) hypertension; Z86.79 Personal history of other diseases of the circulatory system
CPT/HCPCS: 70553; A9579

== ENCOUNTER 2024-06-25 09:45 | Outpatient (RCR) | payer MEDICARE, SELFPAY ==
--- NOTE | 2024-06-06 16:52 | PT.OIE ---
Current Diagnoses Nontraumatic subarachnoid hemorrhage, unspecified (06/06/24) Nontraumatic intracranial hemorrhage, unspecified (06/06/24) Personal history of transient ischemic attack (TIA), and cerebral infarction without residual deficits (06/06/24) Past Medical History (Last Reviewed 06/06/24 @ 16:07 by Christiano Parra DO) Hypertension Incomplete prolapse of vaginal vault Past Surgical History (Last Reviewed 06/06/24 @ 16:07 by Christiano Parra DO) History of third molar tooth extraction Status post appendectomy Status post hysterectomy with oophorectomy Visit Care Team Role Provider Type Mary Alcantar DO Attending Provider Physician Family Provider Primary Care Provider Referring Provider Specialty: 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 Pt was noticing some visual changes and confusion, and presented to ED . Following imaging, pt diagnoses with nontraumatic subarachnoid hemorrhage and was transferred to [facility]. Pt comes to PT today with overall very minimal complaints following CVA. Has largely recovered to pre-CVA functional levels, does not appear to have gotten much worse than confusion and some visual changes, which pt feels have largely resolved. Pt's only lingering complaints os some occasional mild weakness in her right hip, with right posterior hip pain, and difficulty ascending steps on right side, although she admits she is unsure if this was a result of her CVA, she thinks it may have been an issue prior to her hemorrhage. Treatment Goals Patient/Caregiver Goals Improve ability ascending stairs, eliminate posterior R hip pain PT-OP-C Subjective Start: 06/06/24 16:12 Freq: Status: Active Protocol: Document 06/06/24 10:45 DCW (Rec: 06/06/24 16:39 DCW [id number]) OP-PT Subjective Patient Comments Patient Comments I feel normal, but I also thought I felt normal during the stroke. I don't really remember thinking I was confused, but I couldn't figure out how to dress myself , and got lost trying to find the bathroom. PT-OP-L Special Tests Start: 06/06/24 16:12 Freq: Status: Active Protocol: Document 06/06/24 10:45 DCW (Rec: 06/06/24 16:39 DCW [id number]) Special Tests Hip Special Tests Piriformis Test Results c/o tightness PT-OP-M Strength Start: 06/06/24 16:12 Freq: Status: Active Protocol: Document 06/06/24 10:45 DCW (Rec: 06/06/24 16:39 DCW [id number]) Hip Strength Hip Manual Muscle Testing Right Flexion (L2) 4+ Good+ Extension (S1) 4 Good Abduction 4+ Good+ Adduction 4+ Good+ External Rotation 4 Good Internal Rotation 4+ Good+ Left Flexion (L2) 4+ Good+ Extension (S1) 4+ Good+ Abduction 4+ Good+ Adduction 4+ Good+ External Rotation 4+ Good+ Internal Rotation 4+ Good+ Knee Strength Knee Manual Muscle Testing Right Flexion (S2) 4+ Good+ Extension (L3) 4+ Good+ Left Flexion (S2) 4+ Good+ Extension (L3) 4+ Good+ PT-OP-Q Treatments Start: 06/06/24 16:12 Freq: Status: Active Protocol: Document 06/06/24 10:45 DCW (Rec: 06/06/24 16:39 DCW [id number]) Therapeutic Exercises Supine Exercises Piriformis Supine Exercise Name Piriformis Stretch - Figure-4 Side right Sitting Exercises Piriformis Sitting Exercise Name Piriformis Stretch - Seated Figure-4 Side right PT-OP-T Assessment and Plan Start: 06/06/24 16:12 Freq: Status: Active Protocol: Document 06/06/24 10:45 DCW (Rec: 06/06/24 16:52 DCW [id number]) Physical Therapy Assessment Rehab Potential Rehabilitation Potential Excellent Evaluation Complexity Number of Personal Factors/Comorbidities 1-2 Number of Body Systems Impaired 3 Clinical Presentation at Evaluation Stable Impairments Impairments Functional Activities, Functional Mobility,Strength Goals Two Impairment Pt struggles ascending stairs with her right leg 40% of the time Group Home Goal (LTG) Pt to report ability to ascend and descend stairs in a step- over-step gait pattern with no feeling of weakness of pain in her right hip for more than one week. LTG Duration 08/04/24 One Impairment Pt does not have an appropriate home exercise program Short Term Goal (STG) Pt to be independent and compliant with an appropriate HEP STG Duration 07/07/24 Assessment Summary Assessment Pt presenting to skilled therapy nearly asymptotically two months s/p nontraumatic subarachnoid hemorrhage. Pt experiencing no further visual loss, no functional difficulties in ADLs or mobility other than occasional difficulty navigating stairs, particularly her right hip. Will likely benefit from brief course of skilled therapeutic intervention focusing on right hip strengthening, decreased tone, and stair training. Physical Therapy Plan Frequency and Duration Frequency of Treatment 2x/Week Plan of Care Start Date 06/06/24 Plan of Care End Date 08/04/24 Therapeutic Interventions Therapeutic Interventions Gait Training,Home Exercise Program,Joint Mobilizations, Manual Therapy,Neuromuscular Re-education,Patient/Caregiver Education,Self-Care/Home Management,Soft Tissue Mobilization,Therapeutic Activities,Therapeutic Exercises Next Visit Focus/Plan Next Note Type Treatment Note Next Visit Plan Hip stretching/flexibility, hip extension strengthening, stair training
--- NOTE | 2024-06-06 16:54 | PT.OPPOC ---
Physical, Occupational & Speech Therapy At [facility] Current Diagnoses Nontraumatic subarachnoid hemorrhage, unspecified (06/06/24) Nontraumatic intracranial hemorrhage, unspecified (06/06/24) Personal history of transient ischemic attack (TIA), and cerebral infarction without residual deficits (06/06/24) Visit Care Team Role Provider Type Mary Alcantar DO Attending Provider Physician Family Provider Primary Care Provider Referring Provider Specialty: Family Practice Address: [address] [place] [address], [address], [facility] Email: [email or web address] Plan Of Care PT-OP-B Current Condition Start: 06/06/24 16:12 Freq: Status: Active Protocol: Document 06/06/24 10:45 DCW (Rec: 06/06/24 16:39 DCW [id number]) Current Condition History of Current Condition Onset Date 04/03/24 Current Complaints s/p CVA - nontraumatic subarachnoid hemorrhage History of Current Condition Pt is an 83 year old female presenting two months s/p nontraumatic subarachnoid hemorrhage. Pt was noticing some visual changes and confusion, and presented to ED . Following imaging, pt diagnoses with nontraumatic subarachnoid hemorrhage and was transferred to [facility]. Pt comes to PT today with overall very minimal complaints following CVA. Has largely recovered to pre-CVA functional levels, does not appear to have gotten much worse than confusion and some visual changes, which pt feels have largely resolved. Pt's only lingering complaints os some occasional mild weakness in her right hip, with right posterior hip pain, and difficulty ascending steps on right side, although she admits she is unsure if this was a result of her CVA, she thinks it may have been an issue prior to her hemorrhage. Treatment Goals Patient/Caregiver Goals Improve ability ascending stairs, eliminate posterior R hip pain PT-OP-T Assessment and Plan Start: 06/06/24 16:12 Freq: Status: Active Protocol: Document 06/06/24 10:45 DCW (Rec: 06/06/24 16:52 DCW [id number]) Physical Therapy Assessment Rehab Potential Rehabilitation Potential Excellent Evaluation Complexity Number of Personal Factors/Comorbidities 1-2 Number of Body Systems Impaired 3 Clinical Presentation at Evaluation Stable Impairments Impairments Functional Activities, Functional Mobility,Strength Goals Two Impairment Pt struggles ascending stairs with her right leg 40% of the time Legislative Assistant Goal (LTG) Pt to report ability to ascend and descend stairs in a step- over-step gait pattern with no feeling of weakness of pain in her right hip for more than one week. LTG Duration 08/04/24 One Impairment Pt does not have an appropriate home exercise program Short Term Goal (STG) Pt to be independent and compliant with an appropriate HEP STG Duration 07/07/24 Assessment Summary Assessment Pt presenting to skilled therapy nearly asymptomatic two months s/p nontraumatic subarachnoid hemorrhage. Pt experiencing no further visual loss, no functional difficulties in ADLs or mobility other than occasional difficulty navigating stairs, particularly her right hip. Will likely benefit from brief course of skilled therapeutic intervention focusing on right hip strengthening, decreased tone, and stair training. Physical Therapy Plan Frequency and Duration Frequency of Treatment 2x/Week Plan of Care Start Date 06/06/24 Plan of Care End Date 08/04/24 Therapeutic Interventions Therapeutic Interventions Gait Training,Home Exercise Program,Joint Mobilizations, Manual Therapy,Neuromuscular Re-education,Patient/Caregiver Education,Self-Care/Home Management,Soft Tissue Mobilization,Therapeutic Activities,Therapeutic Exercises Next Visit Focus/Plan Next Note Type Treatment Note Next Visit Plan Hip stretching/flexibility, hip extension strengthening, stair training Plan of Care Dates Plan of Care Start Date 06/06/24 Plan of Care End Date 08/04/24 Electronically Signed by: Herson Murphy, PT 06/06/24 5601 If you are in agreement with this Plan of Care, please return a signed and dated copy. I have reviewed this Plan of Care and certify that the skilled therapy services above are required to meet the patient?s needs. Physician Signature Date Printed Name and Credentials Clinical Instructor Signature Printed Name and Credentials
--- NOTE | 2024-06-09 14:33 | PT.OTN ---
Current Diagnoses Nontraumatic subarachnoid hemorrhage, unspecified (06/09/24) Nontraumatic intracranial hemorrhage, unspecified (06/09/24) Personal history of transient ischemic attack (TIA), and cerebral infarction without residual deficits (06/09/24) Physical Therapy Treatment Note PT-OP-A Visit Information Start: 06/06/24 16:12 Freq: Status: Active Protocol: Document 06/09/24 12:32 AB (Rec: 06/09/24 14:33 AB [id number]) Out-Patient Physical Therapy Visit Information Visit Information Visit Type Treatment Note Visit Start Time 13:02 Visit Stop Time 13:49 Visit Number 2 Number of BUZZSAW OPERATOR Visits 1 Evaluation Information Evaluation Date 06/06/24 PT-OP-B Current Condition Start: 06/06/24 16:12 Freq: Status: Active Protocol: Document 06/06/24 10:45 DCW (Rec: 06/06/24 16:39 DCW [id number]) Current Condition History of Current Condition Onset Date 04/03/24 Current Complaints s/p CVA - nontraumatic subarachnoid hemorrhage History of Current Condition Pt is an 83 year old female presenting two months s/p nontraumatic subarachnoid hemorrhage. Pt was noticing some visual changes and confusion, and presented to ED . Following imaging, pt diagnoses with nontraumatic subarachnoid hemorrhage and was transferred to [facility]. Pt comes to PT today with overall very minimal complaints following CVA. Has largely recovered to pre-CVA functional levels, does not appear to have gotten much worse than confusion and some visual changes, which pt feels have largely resolved. Pt's only lingering complaints os some occasional mild weakness in her right hip, with right posterior hip pain, and difficulty ascending steps on right side, although she admits she is unsure if this was a result of her CVA, she thinks it may have been an issue prior to her hemorrhage. Treatment Goals Patient/Caregiver Goals Improve ability ascending stairs, eliminate posterior R hip pain PT-OP-C Subjective Start: 06/06/24 16:12 Freq: Status: Active Protocol: Document 06/09/24 12:32 AB (Rec: 06/09/24 14:33 AB [id number]) OP-PT Subjective Patient Comments Patient Comments Alice reports she feels she is a little better. Would like to clarify her one exercise that she has been doing at home. Pt reports having no pain start of session. PT-OP-L Special Tests Start: 06/06/24 16:12 Freq: Status: Active Protocol: Document 06/06/24 10:45 DCW (Rec: 06/06/24 16:39 DCW [id number]) Special Tests Hip Special Tests Piriformis Test Results c/o tightness PT-OP-M Strength Start: 06/06/24 16:12 Freq: Status: Active Protocol: Document 06/06/24 10:45 DCW (Rec: 06/06/24 16:39 DCW [id number]) Hip Strength Hip Manual Muscle Testing Right Flexion (L2) 4+ Good+ Extension (S1) 4 Good Abduction 4+ Good+ Adduction 4+ Good+ External Rotation 4 Good Internal Rotation 4+ Good+ Left Flexion (L2) 4+ Good+ Extension (S1) 4+ Good+ Abduction 4+ Good+ Adduction 4+ Good+ External Rotation 4+ Good+ Internal Rotation 4+ Good+ Knee Strength Knee Manual Muscle Testing Right Flexion (S2) 4+ Good+ Extension (L3) 4+ Good+ Left Flexion (S2) 4+ Good+ Extension (L3) 4+ Good+ PT-OP-Q Treatments Start: 06/06/24 16:12 Freq: Status: Active Protocol: Document 06/09/24 12:32 AB (Rec: 06/09/24 14:33 AB [id number]) Therapeutic Exercises Supine Exercises Piriformis Supine Exercise Name Piriformis Stretch - Figure-4 Side right Reps/Minutes 45 sec each LE Prone Exercises child's pose Reps/Minutes X1 Comments on mat for ankle postion due to reports of ankle pain when perfrom at home hip extension Side bilateral Equipment Used 2 pillows under abd area Reps/Minutes X10 Comments verbal cues monitored for pain Sitting Exercises seated hip abduction with band Sitting Exercise Name HEP Side bilateral Resistance [place] green band Reps/Minutes X 20 w/o hold and one min hold X 1 Comments Verbal cues Piriformis Sitting Exercise Name 1. Seated fig 4 2. piriformis (across chest) Side bilateral Equipment Used HEP Reps/Minutes 45 sec X 2 each stretch each LE Standing Exercises side stepping with band Side bilateral Resistance [place] green band Reps/Minutes 8 feet left and right X 6 Comments VC to avoid toeing out mini squat Standing Exercise Name HEP Side bilateral Reps/Minutes X10 Comments verbal and visual cues sit to stand Side bilateral Reps/Minutes X6 Comments Verbal cues for buttocks back monitored for pain PT-OP-T Assessment and Plan Start: 06/06/24 16:12 Freq: Status: Active Protocol: Document 06/09/24 12:32 AB (Rec: 06/09/24 14:33 AB [id number]) Physical Therapy Assessment Goals Two Impairment Pt struggles ascending stairs with her right leg 40% of the time Juke Box Servicer Goal (LTG) Pt to report ability to ascend and descend stairs in a step- over-step gait pattern with no feeling of weakness of pain in her right hip for more than one week. LTG Duration 08/04/24 One Impairment Pt does not have an appropriate home exercise program Short Term Goal (STG) Pt to be independent and compliant with an appropriate HEP STG Duration 07/07/24 Assessment Summary Assessment Alice rates right hip pain . 5/10 r hip end of session ambulating out of sesson without device. Physical Therapy Plan Frequency and Duration Frequency of Treatment 2x/Week Plan of Care Start Date 06/06/24 Plan of Care End Date 08/04/24 Next Visit Focus/Plan Next Note Type Treatment Note Next Visit Plan Hip stretching/flexibility, hip extension strengthening, stair training
--- NOTE | 2024-06-11 15:40 | PT.OTN ---
Current Diagnoses Nontraumatic subarachnoid hemorrhage, unspecified (06/11/24) Nontraumatic intracranial hemorrhage, unspecified (06/11/24) Personal history of transient ischemic attack (TIA), and cerebral infarction without residual deficits (06/11/24) Physical Therapy Treatment Note PT-OP-A Visit Information Start: 06/06/24 16:12 Freq: Status: Active Protocol: Document 06/11/24 13:49 AB (Rec: 06/11/24 15:40 AB [id number]) Out-Patient Physical Therapy Visit Information Visit Information Visit Type Treatment Note Visit Start Time 13:49 Visit Stop Time 14:32 Visit Number 3 Number of SEMICONDUCTOR ASSEMBLER Visits 2 PT-OP-B Current Condition Start: 06/06/24 16:12 Freq: Status: Active Protocol: Document 06/06/24 10:45 DCW (Rec: 06/06/24 16:39 DCW [id number]) Current Condition History of Current Condition Onset Date 04/03/24 Current Complaints s/p CVA - nontraumatic subarachnoid hemorrhage History of Current Condition Pt is an 83 year old female presenting two months s/p nontraumatic subarachnoid hemorrhage. Pt was noticing some visual changes and confusion, and presented to ED . Following imaging, pt diagnoses with nontraumatic subarachnoid hemorrhage and was transferred to [facility]. Pt comes to PT today with overall very minimal complaints following CVA. Has largely recovered to pre-CVA functional levels, does not appear to have gotten much worse than confusion and some visual changes, which pt feels have largely resolved. Pt's only lingering complaints os some occasional mild weakness in her right hip, with right posterior hip pain, and difficulty ascending steps on right side, although she admits she is unsure if this was a result of her CVA, she thinks it may have been an issue prior to her hemorrhage. Treatment Goals Patient/Caregiver Goals Improve ability ascending stairs, eliminate posterior R hip pain PT-OP-C Subjective Start: 06/06/24 16:12 Freq: Status: Active Protocol: Document 06/11/24 13:49 AB (Rec: 06/11/24 15:40 AB [id number]) OP-PT Subjective Patient Comments Patient Comments Patient reports she is able to do a bigger stride on right side without any pain, doesn't have a lot of pain with walking, but had a restriction and is looser. Patient reports she is holding her stretches 60 seconds, but didn 't do exercises today yet. PT-OP-L Special Tests Start: 06/06/24 16:12 Freq: Status: Active Protocol: Document 06/06/24 10:45 DCW (Rec: 06/06/24 16:39 DCW [id number]) Special Tests Hip Special Tests Piriformis Test Results c/o tightness PT-OP-M Strength Start: 06/06/24 16:12 Freq: Status: Active Protocol: Document 06/06/24 10:45 DCW (Rec: 06/06/24 16:39 DCW [id number]) Hip Strength Hip Manual Muscle Testing Right Flexion (L2) 4+ Good+ Extension (S1) 4 Good Abduction 4+ Good+ Adduction 4+ Good+ External Rotation 4 Good Internal Rotation 4+ Good+ Left Flexion (L2) 4+ Good+ Extension (S1) 4+ Good+ Abduction 4+ Good+ Adduction 4+ Good+ External Rotation 4+ Good+ Internal Rotation 4+ Good+ Knee Strength Knee Manual Muscle Testing Right Flexion (S2) 4+ Good+ Extension (L3) 4+ Good+ Left Flexion (S2) 4+ Good+ Extension (L3) 4+ Good+ PT-OP-Q Treatments Start: 06/06/24 16:12 Freq: Status: Active Protocol: Document 06/11/24 13:49 AB (Rec: 06/11/24 15:40 AB [id number]) Therapeutic Exercises Supine Exercises Modified Curt stretch Side bilateral Reps/Minutes 60 sec each LE Comments verbal cues Piriformis Supine Exercise Name Piriformis Stretch - Figure-4 Side bilateral Reps/Minutes 60 sec each LE Prone Exercises hip extension Side bilateral Equipment Used 2 pillows under abd area Reps/Minutes X10 Comments verbal cues monitored for pain Sitting Exercises seated hip abduction with band Sitting Exercise Name HEP Side bilateral Resistance [place] green band Reps/Minutes one min hold X 1 Comments Verbal cues Standing Exercises mini squat Standing Exercise Name HEP Side bilateral Resistance Level 3 band not on HEP Reps/Minutes X10 Comments verbal and visual cues Therapeutic Activity Therapeutic Activity stair training Name four 6 inch steps X 3 Comments Pt ascends and descends bilateral rails reciprocal pattern gestures to bilateral SI area reporting inc pain ( grimacing) Manual Therapy Treatment Consent Patient gave verbal consent for manual Yes treatment Soft Tissue Mobilization B hips Body Location illiopsoas, glute/piriformis Mobilization Type Cross-Friction,Rolling Intensity/Depth Moderate Body Position Hooklying Comments and sidelying, prior to stretches PT-OP-T Assessment and Plan Start: 06/06/24 16:12 Freq: Status: Active Protocol: Document 06/11/24 13:49 AB (Rec: 06/11/24 15:40 AB [id number]) Physical Therapy Assessment Goals Two Impairment Pt struggles ascending stairs with her right leg 40% of the time Fci Goal (LTG) Pt to report ability to ascend and descend stairs in a step- over-step gait pattern with no feeling of weakness of pain in her right hip for more than one week. LTG Duration 08/04/24 One Impairment Pt does not have an appropriate home exercise program Short Term Goal (STG) Pt to be independent and compliant with an appropriate HEP STG Duration 07/07/24 Assessment Summary Assessment Alice reports having no pain end of session, did report increased pain post manual and stretches when performing stairs, but less with verbal cues for glute max activation. Physical Therapy Plan Frequency and Duration Frequency of Treatment 2x/Week Plan of Care Start Date 06/06/24 Plan of Care End Date 08/04/24 Next Visit Focus/Plan Next Note Type Treatment Note Next Visit Plan Hip stretching/flexibility, hip extension strengthening add resistance to prone hip ext, stair training/ step ups
--- NOTE | 2024-06-25 10:06 | PT.OTN ---
Current Diagnoses Nontraumatic subarachnoid hemorrhage, unspecified (06/25/24) Nontraumatic intracranial hemorrhage, unspecified (06/25/24) Personal history of transient ischemic attack (TIA), and cerebral infarction without residual deficits (06/25/24) Physical Therapy Treatment Note PT-OP-A Visit Information Start: 06/06/24 16:12 Freq: Status: Active Protocol: Document 06/25/24 09:45 DCW (Rec: 06/25/24 10:06 DCW [id number]) Out-Patient Physical Therapy Visit Information Visit Information Visit Type Discharge Summary Visit Start Time 09:45 Visit Stop Time 10:00 Visit Number 4 Number of CHIEF RADIOLOGY Visits 0 Evaluation Information Evaluation Date 06/06/24 PT-OP-B Current Condition Start: 06/06/24 16:12 Freq: Status: Active Protocol: Document 06/06/24 10:45 DCW (Rec: 06/06/24 16:39 DCW [id number]) Current Condition History of Current Condition Onset Date 04/03/24 Current Complaints s/p CVA - nontraumatic subarachnoid hemorrhage History of Current Condition Pt is an 83 year old female presenting two months s/p nontraumatic subarachnoid hemorrhage. Pt was noticing some visual changes and confusion, and presented to ED . Following imaging, pt diagnoses with nontraumatic subarachnoid hemorrhage and was transferred to [facility]. Pt comes to PT today with overall very minimal complaints following CVA. Has largely recovered to pre-CVA functional levels, does not appear to have gotten much worse than confusion and some visual changes, which pt feels have largely resolved. Pt's only lingering complaints os some occasional mild weakness in her right hip, with right posterior hip pain, and difficulty ascending steps on right side, although she admits she is unsure if this was a result of her CVA, she thinks it may have been an issue prior to her hemorrhage. Treatment Goals Patient/Caregiver Goals Improve ability ascending stairs, eliminate posterior R hip pain PT-OP-C Subjective Start: 06/06/24 16:12 Freq: Status: Active Protocol: Document 06/25/24 09:45 DCW (Rec: 06/25/24 10:06 DCW [id number]) OP-PT Subjective Patient Comments Patient Comments Pt reports she went to her eye doctor yesterday, passed her tests, and is now cleared to drive. PT-OP-L Special Tests Start: 06/06/24 16:12 Freq: Status: Active Protocol: Document 06/06/24 10:45 DCW (Rec: 06/06/24 16:39 DCW [id number]) Special Tests Hip Special Tests Piriformis Test Results c/o tightness PT-OP-M Strength Start: 06/06/24 16:12 Freq: Status: Active Protocol: Document 06/06/24 10:45 DCW (Rec: 06/06/24 16:39 DCW [id number]) Hip Strength Hip Manual Muscle Testing Right Flexion (L2) 4+ Good+ Extension (S1) 4 Good Abduction 4+ Good+ Adduction 4+ Good+ External Rotation 4 Good Internal Rotation 4+ Good+ Left Flexion (L2) 4+ Good+ Extension (S1) 4+ Good+ Abduction 4+ Good+ Adduction 4+ Good+ External Rotation 4+ Good+ Internal Rotation 4+ Good+ Knee Strength Knee Manual Muscle Testing Right Flexion (S2) 4+ Good+ Extension (L3) 4+ Good+ Left Flexion (S2) 4+ Good+ Extension (L3) 4+ Good+ PT-OP-Q Treatments Start: 06/06/24 16:12 Freq: Status: Active Protocol: Document 06/25/24 09:45 DCW (Rec: 06/25/24 10:06 [facility] [id number]) Self-Care/Home Management Treatment Education Other Education Pt edu on HEP, focus on exercises and activities to maintain LE strength, up/down stairs at Library. PT-OP-T Assessment and Plan Start: 06/06/24 16:12 Freq: Status: Active Protocol: Document 06/25/24 09:45 DCW (Rec: 06/25/24 10:06 [facility] [id number]) Physical Therapy Assessment Goals Two Impairment Pt struggles ascending stairs with her right leg 40% of the time Guide Delegate Goal (LTG) Pt to report ability to ascend and descend stairs in a step- over-step gait pattern with no feeling of weakness of pain in her right hip for more than one week. LTG Duration 08/04/24 One Impairment Pt does not have an appropriate home exercise program Short Term Goal (STG) Pt to be independent and compliant with an appropriate HEP STG Duration 07/07/24 Assessment Summary Assessment Pt notes that I think I'm ready to be released. Feels comfortable with her HEP, no further complaints or symptoms , doing well overall. Pt discharged from skilled PT at this time. Physical Therapy Plan Frequency and Duration Frequency of Treatment 2x/Week Plan of Care Start Date 06/06/24 Plan of Care End Date 08/04/24 Discharge Physical Therapy Discharge Reasons Patient Request Next Visit Focus/Plan Next Note Type Discharge Summary
== END 2025-03-04 10:52 | disposition home or self-care (01) ==
LOC: PHYS 09:45
PROVIDERS: Family Provider Family Medicine; PCP Family Medicine; Referring Provider Family Medicine; Visit Provider Family Medicine
DX: I60.9 Nontraumatic subarachnoid hemorrhage, unspecified (principal); Z86.73 Personal history of transient ischemic attack (TIA), and cerebral infarction without residual deficits; I62.9 Nontraumatic intracranial hemorrhage, unspecified
CPT/HCPCS: 97110; 97140; 97161; 97530; 97535

== ENCOUNTER → 2024-10-30 10:08 | Outpatient (CLI) | payer MEDICARE, SELFPAY ==
--- NOTE | 2024-10-30 10:12 | DI.RAD.S_ITS ---
PROCEDURE: XR KUB INDICATIONS: Calculus of kidney TECHNIQUE: One view of the abdomen acquired. COMPARISON: [facility], CT, CT IVP A/P W/WO, 05/22/2024, 9:26. FINDINGS: Surgical changes and devices: None. Bowel: Bowel gas pattern is normal. Soft tissues: 2.5 cm calculus again seen projecting over the superior pole the left kidney with adjacent smaller 0.5 cm calculus. Visualized solid organ contours appear normal in size. Bones: No suspicious bony lesions. Degenerative changes are seen in the spine and hips. IMPRESSION: Stable 2.5 cm left renal calculus. Approved by: Ward Hansen M.D. on 10/30/2024 at 16:35
== END ==
PROVIDERS: Family Provider Family Medicine; PCP Family Medicine; Referring Provider Family Medicine; Visit Provider Urology
DX: N20.0 Calculus of kidney (principal)
CPT/HCPCS: 74018

== ENCOUNTER → 2024-10-31 13:46 | Outpatient (CLI) | payer MEDICARE, SELFPAY ==
[2024-10-31 15:32] LABS: Estimated Glomerular Filt Rate > 60 mL/min (>60)
== END ==
PROVIDERS: Family Provider Family Medicine; PCP Family Medicine; Referring Provider Urology; Visit Provider Urology
DX: N20.0 Calculus of kidney (principal)
CPT/HCPCS: 36415; 82565

== ENCOUNTER 2024-11-10 10:46 | Emergency (ER) | payer MEDICARE, SELFPAY ==
[2024-11-10 10:56] VITALS: BP 170/75; PULSE 78; RESP 17; TEMP 36.9; O2SAT 98; BMI 25.7
--- NOTE | 2024-11-10 11:09 | ED.FALL ---
HPI - Fall <Beth Nino PA-C - Last Filed: 11/10/24 12:58> General Chief Complaint: Fall Stated Complaint: Fell and hit her head Yesterday Time Seen by Provider: 11/10/24 11:05 Source: patient Mode of arrival: Ambulatory History of Present Illness HPI Narrative: Ms. Rangel is a pleasant 84-year-old female with a past medical history of spontaneous subarachnoid hemorrhage, hypertension on amlodipine and lisinopril, type 2 diabetes on metformin, kidney stone, TIA, CAD with stent who presents to the emergency department for 3 falls in the past 24 hours. Patient states yesterday while she was gardening she had 2 mechanical/accidental falls however this morning she then had another fall that was not mechanical. States that yesterday while watering brown she accidentally stepped backwards falling down to outdoor steps hitting the back of her head and her mid thoracic back region. There was no loss of consciousness and she was able to get up and continue gardening however she did have some pain of the back of her head, her upper thoracic back, and the front of her neck. Describes having another minor fall while gardening due to tripping sustaining some right shoulder pain. This morning however she was bent forward picking something up off the ground when she spontaneous fell onto her left side. This fall is what prompted her ER visit. She denies headache, lightheadedness, dizziness, visual disturbance, chest pain, shortness of breath, abdominal pain, nausea, vomiting, diarrhea, constipation, dysuria, fevers, chills or flu-like symptoms. No symptoms precipitated any of her falls. This time she reports minor soreness on the back of her head and right shoulder in the superficial abrasion of her mid upper but she denies any other symptoms. States that she did not take her blood pressure medications this morning which are amlodipine and lisinopril. She is not on any blood thinners besides baby aspirin. She is ambulatory without difficulty and here with her . Related Data Home Medications ?Medication ?Instructions ?Recorded ?Confirmed ezetimibe 10 mg tablet 10 mg PO DAILY 03/15/23 11/05/24 magnesium glycinate 100 mg PO ONCE HS 05/16/24 11/05/24 agwoqadf-dys-evnss ac 400 1 tab PO DAILY 06/30/24 11/05/24 mcg-calcium carb 500 mg-vit K1 20 mcg tablet (Women's 50 Plus Multivitamin) dexamethasone 0.5 mg/5 mL oral 0.5 mg PO BID 10/01/24 11/05/24 solution mometasone 0.1 % topical solution 1 applic topical DAILY 10/01/24 11/05/24 Previous Rx's ?Medication ?Instructions ?Recorded aspirin 81 mg tablet,delayed 81 mg PO QDAY #30 tabs 06/02/17 release cholecalciferol (vitamin D3) 25 25 mcg PO DAILY #90 caps 04/17/24 mcg (1,000 unit) capsule cyanocobalamin (vitamin B-12) 2,500 mcg PO DAILY #90 tabs 04/17/24 2,500 mcg tablet magnesium citrate 125 mg capsule 250 mg (2 x 125 mg) PO DAILY #90 04/17/24 caps rosuvastatin 5 mg tablet 5 mg PO DAILY #1 tab 04/17/24 amlodipine 10 mg tablet 10 mg PO DAILY #90 tabs 07/30/24 blood sugar diagnostic (FreeStyle #100 ea 08/02/24 Lite Strips) lisinopril 40 mg tablet 40 mg PO DAILY #90 tabs 09/12/24 metformin 1,000 mg tablet 1,000 mg PO BID #360 tabs 10/23/24 Allergies Allergy/AdvReac Type Severity Reaction Status Date / Time Hszltsd-TTM-CmW Reductase AdvReac Intermediate muscle Verified 11/10/24 10:56 Inhibitor aches, weakness Sulfa (Sulfonamide AdvReac Intermediate SKIN Verified 11/10/24 10:56 Antibiotics) BRUISING prednisone (PREDNISONE) AdvReac Unknown MORBID Verified 11/10/24 10:56 NIGHTMARES Review of Systems <Beth Nino PA-C - Last Filed: 11/10/24 12:58> Review of Systems ROS Unobtainable: All systems reviewed & are unremarkable except as noted in HPI and below Patient History <Beth Nino PA-C - Last Filed: 11/10/24 12:58> Medical History TIA (transient ischemic attack) Incomplete prolapse of vaginal vault Hypertension Surgical History History of third molar tooth extraction Status post appendectomy Status post hysterectomy with oophorectomy Family History Brother AAA (abdominal aortic aneurysm) Social History Smoking Status: Never smoker alcohol intake: current substance use type: does not use Smoking Status: Never smoker Exam <Beth Nino PA-C - Last Filed: 11/10/24 12:58> Narrative Exam Narrative: GENERAL: 84 year old patient appears stated age. Well-developed patient, in no acute distress. HEAD: Atraumatic. Normocephalic. No scalp wounds. EYES: PERRL. Extraocular motions intact. No scleral icterus. No injection or drainage. ENT: Pearly cuadra TMs bilaterally, clear ear canals. Nose without bleeding, purulent drainage. Throat without erythema, tonsillar hypertrophy or exudate. Airway patent. NECK: Trachea midline. Cervical ROM intact. No midline cervical tenderness. CARDIOVASCULAR: Regular rate and rhythm. RESPIRATORY: ?Nonlabored respirations. ?Speaking in clear, full sentences. ?Clear to auscultation. Breath sounds equal bilaterally. No wheezes, rales, or rhonchi. ? GASTROINTESTINAL: Abdomen soft, non-tender, nondistended. No bruising. EXTREMITIES: No edema or joint tenderness. Subjective pain with abduction of right shoulder. BACK: No midline spinal tenderness. There is a superficial abrasion on the mid/right thoracic region. NEURO: AOx3. ?Clear speech. ?Moves all 4 extremities appropriately. No pronator drift. No facial asymmetry. Sensation intact to light touch throughout the face and extremities. SKIN: Skin is warm, dry. No ecchymosis. Superficial abrasion on upper back described above. Initial Vital Signs Initial Vital Signs: Vital Signs Temperature 98.4 F 11/10/24 10:56 Pulse Rate 78 11/10/24 10:56 Respiratory Rate 17 11/10/24 10:56 Blood Pressure 170/75 H 11/10/24 10:56 Pulse Oximetry 98 11/10/24 10:56 Oxygen Delivery Method Room Air 11/10/24 10:56 <Rehana Casey MD - Last Filed: 11/10/24 19:02> Initial Vital Signs Initial Vital Signs: Vital Signs Temperature 98.4 F 11/10/24 10:56 Pulse Rate 78 11/10/24 10:56 Respiratory Rate 17 11/10/24 10:56 Blood Pressure 170/75 H 11/10/24 10:56 Pulse Oximetry 98 11/10/24 10:56 Oxygen Delivery Method Room Air 11/10/24 10:56 Course <Beth Nino PA-C - Last Filed: 11/10/24 12:58> Orders Ordered: ED Orders 11/10/24 11:12 Urine Culture Stat Urine Microscopic Stat 11/10/24 11:26 CT cervical spine wo con Stat CT head/brain wo con Stat XR chest 2V Stat XR shoulder RT 2+ views Stat 11/10/24 11:28 EKG-12 Lead Stat 11/10/24 11:51 Complete Blood Count AUTO DIFF Stat Comprehensive Metabolic Panel Stat PTT Partial Thromboplastin Bandar Stat Prothrombin Time INR Stat Troponin & CK Cardiac Panel Stat Discontinued Medications Amlodipine Besylate (Amlodipine 5 Mg Tablet) 10 mg PO NOW ONE Stop: 11/10/24 12:40 Last Admin: 11/10/24 12:48 Dose: 10 mg Documented By: LISETTE Lisinopril (Lisinopril 20 Mg Tablet) 40 mg PO NOW ONE Stop: 11/10/24 12:40 Last Admin: 11/10/24 12:47 Dose: 40 mg Documented By: GONSALO Vital Signs Vital signs: Vital Signs - 8 hr 11/10/24 11:58 11/10/24 12:00 11/10/24 12:01 Pulse Rate 64 62 62 Respiratory Rate 810 H 12 Blood Pressure Pulse Oximetry 99 99 99 11/10/24 12:01 11/10/24 12:30 11/10/24 12:30 Pulse Rate 61 Respiratory Rate 14 Blood Pressure 158/71 H 162/71 H Pulse Oximetry 98 11/10/24 12:47 Pulse Rate 64 Respiratory Rate Blood Pressure 162/71 H Pulse Oximetry <Rehana Casey MD - Last Filed: 11/10/24 19:02> Orders Ordered: ED Orders 11/10/24 11:12 Urine Culture Stat Urine Microscopic Stat 11/10/24 11:26 CT cervical spine wo con Stat CT head/brain wo con Stat XR chest 2V Stat XR shoulder RT 2+ views Stat 11/10/24 11:28 EKG-12 Lead Stat 11/10/24 11:51 Complete Blood Count AUTO DIFF Stat Comprehensive Metabolic Panel Stat PTT Partial Thromboplastin Bandar Stat Prothrombin Time INR Stat Troponin & CK Cardiac Panel Stat Discontinued Medications Amlodipine Besylate (Amlodipine 5 Mg Tablet) 10 mg PO NOW ONE Stop: 11/10/24 12:40 Last Admin: 11/10/24 12:48 Dose: 10 mg Documented By: [facility] Lisinopril (Lisinopril 20 Mg Tablet) 40 mg PO NOW ONE Stop: 11/10/24 12:40 Last Admin: 11/10/24 12:47 Dose: 40 mg Documented By: [facility] Vital Signs Vital signs: Vital Signs - 8 hr 11/10/24 11:58 11/10/24 12:00 11/10/24 12:01 Pulse Rate 64 62 62 Respiratory Rate 810 H 12 Blood Pressure Pulse Oximetry 99 99 99 11/10/24 12:01 11/10/24 12:30 11/10/24 12:30 Pulse Rate 61 Respiratory Rate 14 Blood Pressure 158/71 H 162/71 H Pulse Oximetry 98 11/10/24 12:47 Pulse Rate 64 Respiratory Rate Blood Pressure 162/71 H Pulse Oximetry MDM - Fall <Beth Nino PA-C - Last Filed: 11/10/24 12:58> Medical Records Attestation: I reviewed the patient's medical records. Medical records narrative: Most recent ED visit at this hospital 04/03/2024 for subarachnoid hemorrhage Lab Data 11/10/24 11:51 11/10/24 11:51 Labs: Lab Results 11/10/24 11/10/24 Range/Units 11:12 11:51 WBC 8.3 (4.5-11.0) X10^3/uL RBC 4.72 (4.0-5.2) X10^6/uL Hgb 13.9 (12.0-16.0) g/dL Hct 41.6 (36-46) % MCV 88.2 (80-100) fL MCH 29.4 (26-34) PG MCHC 33.3 (30-36) % RDW 13.4 (11.6-14.8) % Plt Count 271 (150-400) X10^3/uL Neut % (Auto) 69.6 (50-75) % Lymph % (Auto) 21.8 L (25-40) % [place] % (Auto) 6.6 (3-14) % Eos % (Auto) 1.3 L (2-4) % Baso % (Auto) 0.7 (0-2) % Neut # (Auto) 5800 (0283-3179) /uL Lymph # (Auto) 1800 (0853-2304) /uL [place] # (Auto) 500 (0-900) /uL Eos # (Auto) 100 (0-450) /uL Baso # (Auto) 100 (0-100) /uL PT 9.6 (9.4-12.5) SECONDS INR 0.8 L (0.9-1.3) APTT 28 (25.1-36.5) SECONDS Sodium 138 (137-145) mmol/L Potassium 4.1 (3.4-5.1) mmol/L Chloride 101 (98-107) mmol/L Carbon Dioxide 27 (22-32) mmol/L BUN 16 (7-17) mg/dL Creatinine 0.65 (0.52-1.04) mg/dL Estimated GFR > 60 (>60) mL/min BUN/Creatinine Ratio 24.6 H (6-22) Glucose 186 H (70-99) mg/dL Calcium 9.7 (8.4-10.2) mg/dL Total Bilirubin 0.8 (0.2-1.3) mg/dL AST 27 (14-36) IU/L ALT 17 (<35) IU/L Alkaline Phosphatase 70 (38-126) U/L Total Creatine Kinase 43 (30-135) U/L Troponin I < 0.012 (0.01-0.034) ng/mL Total Protein 7.9 (6.3-8.2) g/dL Albumin 4.9 (3.5-5.0) g/dL Globulin 3.0 (1.7-4.1) g/dL Albumin/Globulin Ratio 1.6 (1.0-2.8) Urine RBC None seen (0-5/HPF) Urine WBC 1-5/hpf (0-5/HPF) Ur Squamous Epith Cells 0-1 /hpf (0-5/HPF) Calcium Oxalate Crystal Few H Urine Bacteria None seen (None) Ur Culture Indicated? Cult not indicated Vol Urine Centrifuged 10ml (spun) Urine Dip Bedside Urine Glucose Negative Bedside Urine Bilirubin - Negative Bedside Urine Ketone - Negative Urine Specific [place] 1.015 Bedside Urine Occult Blood - Negative Bedside Urine pH 6.0 Bedside Urine Protein - Negative Bedside Urine Urobilinogen - Negative Bedside Urine Nitrite - Negative Bedside Urine Leukocytes + [address] scan - head: Radiologist's Impression: PROCEDURE: CT HEAD/BRAIN WO CON INDICATIONS: fall x 3 hit back of head; hx SAH TECHNIQUE: Noncontrast 4.5 mm thick angled axial sections acquired from the foramen magnum to the vertex, with coronal and sagittal reformats. For radiation dose reduction, the following was used: automated exposure control, adjustment of mA and/or kV according to patient size. COMPARISON: [facility], CT, CT HEAD/BRAIN WO CON, 04/03/2024, 8:57. FINDINGS: Image quality: Diagnostic. CSF spaces: Basal cisterns are patent. No extra-axial fluid collections. The ventricles are symmetric in size and shape. Brain: No intracranial bleeds or mass effect. Focal encephalomalacia in right occipital lobe at previously noted site of intraparenchymal hemorrhage is seen. There is cerebral volume loss, with resultant ventricular and sulcal prominence. There are periventricular and deep white matter chronic small vessel ischemic changes. There is intracranial internal carotid artery atherosclerosis. Skull and face: Calvarium and visualized facial bones appear intact, without suspicious lesions. Sinuses: Visualized sinuses and mastoids are clear. IMPRESSION: No acute intracranial pathology. Dictated by: Oren Garcias M.D. on 11/10/2024 at 12:11 Approved by: Oren Garcias M.D. on 11/10/2024 at 12:12 CT - cervical spine: Radiologist's Impression: PROCEDURE: CT CERVICAL SPINE WO CON INDICATIONS: fall x 3 TECHNIQUE: Noncontrast 3 mm thick sections acquired from the skull base to the T4 level. Sagittal and coronal reformats were then constructed. For radiation dose reduction, the following was used: automated exposure control, adjustment of mA and/or kV according to patient size. COMPARISON: None. FINDINGS: Image quality: Excellent. Bones: No fractures or dislocations. Spondylitic changes throughout cervical spine are seen. Visualized superior ribs are intact. Soft tissues: Prevertebral soft tissues are normal in thickness. No paravertebral hematomas. No apical pneumothoraces. IMPRESSION: 1. No displaced fracture or traumatic subluxation. 2. Multilevel spondylitic changes throughout cervical spine. Dictated by: Oren Garcias M.D. on 11/10/2024 at 12:12 Approved by: Oren Garcias M.D. on 11/10/2024 at 12:13 Chest x-ray: Radiologist's Impression: PROCEDURE: XR CHEST 2V INDICATIONS: fall; hit left side TECHNIQUE: 2 views of the chest were acquired. COMPARISON: [facility], , XR CHEST 1V, 04/03/2024, 8:37. FINDINGS: Surgical changes and devices: None. Lungs and pleura: Lungs are clear. No pleural effusions or pneumothorax. Mediastinum: Mediastinal contours are normal. Heart size is normal. Bones and chest wall: No suspicious bony abnormalities. Soft tissues appear unremarkable. IMPRESSION: No acute cardiopulmonary pathology. Dictated by: Oren Garcias M.D. on 11/10/2024 at 12:06 Approved by: Oren Garcias M.D. on 11/10/2024 at 12:09 Right Shoulder x-ray: Radiologist's Impression: PROCEDURE: XR SHOULDER RT MIN 2V INDICATIONS: fall x 3; R shoulder pain TECHNIQUE: 2 views of the shoulder were acquired. COMPARISON: None. FINDINGS: Bones: No fractures or dislocations. Moderate acromioclavicular joint osteoarthritic changes are seen. Rebj-rm-xokocxwt glenohumeral joint osteoarthritic changes also noted. No suspicious bony lesions. Visualized ribs appear intact. Soft tissues: No suspicious soft tissue calcifications. IMPRESSION: No acute right shoulder fracture or dislocation. Moderate right shoulder joint osteoarthritis. Dictated by: Oren Garcias M.D. on 11/10/2024 at 12:09 Approved by: Oren Garcias M.D. on 11/10/2024 at 12:11 ECG Data Interpretation: ECG reveals a rate of 63, normal sinus rhythm MDM Narrative Medical decision making narrative: 84-year-old female with a past medical history of spontaneous subarachnoid hemorrhage, hypertension on amlodipine and lisinopril, type 2 diabetes on metformin, kidney stone, TIA, CAD with stent who presents to the emergency department for 3 falls in the past 24 hours. Differential diagnosis includes but is not limited to mechanical fall, ICH, cervical strain, fracture, anemia, electrolyte abnormality, intracerebral mass, UTI, arrhythmia, etc. On exam patient is in no acute distress, nontoxic-appearing, all vital signs within normal limits except for elevated blood pressure 170/75. No focal neurologic deficits. She does have subjective pain of the back of her scalp, right shoulder, anterior neck but denies need for any pain medication. Abdomen is soft and nontender. Lungs clear to auscultation bilaterally. Due to multiple falls, we will obtain labs including troponin, EKG and imaging of the head, neck, chest, right shoulder. Will check urine. CT head reveals no acute intracranial pathology. CT cervical spine reveals no displaced fracture or traumatic subluxation, there is multilevel spondylitic changes. Chest x-ray reveals no acute cardiopulmonary pathology. Right shoulder x-ray reveals no acute right shoulder fracture or dislocation, moderate right shoulder joint osteoarthritis. Labs reveal normal WBC count 8.3, hemoglobin 13.9 hematocrit 41.6. Sodium 138, potassium 4.1, BUN 16 creatinine 0.65. Glucose slightly elevated 186. Normal LFTs. Negative/undetectable troponin. UA reveals 1-5 WBCs, 0-1 urine squamous epithelial cells, few calcium oxalate crystals, no bacteria. Urine sent for culture, patient not experiencing any urinary symptoms or flank pain. Patient ambulated independently around the emergency department with nurse supervising, patient had no difficulty with ambulation, experienced no weakness dizziness lightheadedness or unsteadiness. Discussed all imaging and lab work results with the patient. She feels well at this time, her blood pressure has come down into the 150 systolic however she is quite concerned as she did miss her morning dose of lisinopril and amlodipine. She plans to go to the grocery store after this ED visit, she is requesting her medications prior to discharge which I am agreeable to. She feels comfortable and safe walking, we discussed various fall prevention strategies. Discussed strict ED return precautions with the patient and advised prompt PCP follow up. She verbalized understanding of all information is agreeable with the plan, she is stable for discharge home with a home w her spouse. <Rehana Casey MD - Last Filed: 11/10/24 19:02> Lab Data Labs: Lab Results 11/10/24 11/10/24 Range/Units 11:12 11:51 WBC 8.3 (4.5-11.0) X10^3/uL RBC 4.72 (4.0-5.2) X10^6/uL Hgb 13.9 (12.0-16.0) g/dL Hct 41.6 (36-46) % MCV 88.2 (80-100) fL MCH 29.4 (26-34) PG MCHC 33.3 (30-36) % RDW 13.4 (11.6-14.8) % Plt Count 271 (150-400) X10^3/uL Neut % (Auto) 69.6 (50-75) % Lymph % (Auto) 21.8 L (25-40) % [place] % (Auto) 6.6 (3-14) % Eos % (Auto) 1.3 L (2-4) % Baso % (Auto) 0.7 (0-2) % Neut # (Auto) 5800 (6070-3350) /uL Lymph # (Auto) 1800 (7448-4069) /uL [place] # (Auto) 500 (0-900) /uL Eos # (Auto) 100 (0-450) /uL Baso # (Auto) 100 (0-100) /uL PT 9.6 (9.4-12.5) SECONDS INR 0.8 L (0.9-1.3) APTT 28 (25.1-36.5) SECONDS Sodium 138 (137-145) mmol/L Potassium 4.1 (3.4-5.1) mmol/L Chloride 101 (98-107) mmol/L Carbon Dioxide 27 (22-32) mmol/L BUN 16 (7-17) mg/dL Creatinine 0.65 (0.52-1.04) mg/dL Estimated GFR > 60 (>60) mL/min BUN/Creatinine Ratio 24.6 H (6-22) Glucose 186 H (70-99) mg/dL Calcium 9.7 (8.4-10.2) mg/dL Total Bilirubin 0.8 (0.2-1.3) mg/dL AST 27 (14-36) IU/L ALT 17 (<35) IU/L Alkaline Phosphatase 70 (38-126) U/L Total Creatine Kinase 43 (30-135) U/L Troponin I < 0.012 (0.01-0.034) ng/mL Total Protein 7.9 (6.3-8.2) g/dL Albumin 4.9 (3.5-5.0) g/dL Globulin 3.0 (1.7-4.1) g/dL Albumin/Globulin Ratio 1.6 (1.0-2.8) Urine RBC None seen (0-5/HPF) Urine WBC 1-5/hpf (0-5/HPF) Ur Squamous Epith Cells 0-1 /hpf (0-5/HPF) Calcium Oxalate Crystal Few H Urine Bacteria None seen (None) Ur Culture Indicated? Cult not indicated Vol Urine Centrifuged 10ml (spun) Urine Dip Bedside Urine Glucose Negative Bedside Urine Bilirubin - Negative Bedside Urine Ketone - Negative Urine Specific [place] 1.015 Bedside Urine Occult Blood - Negative Bedside Urine pH 6.0 Bedside Urine Protein - Negative Bedside Urine Urobilinogen - Negative Bedside Urine Nitrite - Negative Bedside Urine Leukocytes + 70 Esterase Discharge Plan Departure Patient Disposition: Home Clinical Impression: Fall Qualifiers: Encounter type: initial encounter Qualified Code(s): W19.XXXA - Unspecified fall, initial encounter Closed head injury Qualifiers: Encounter type: initial encounter Qualified Code(s): S09.90XA - Unspecified injury of head, initial encounter Instructions: DI for Closed Head Injury Activity Restrictions/Additional Instructions: Dear Ms. Rangel, Thank you for coming to the emergency department. Today you were evaluated after falling. We obtained imaging of your head, neck, chest and right shoulder. Your imaging did not reveal any acute traumatic injuries such as fractures or trauma to the brain. Your imaging did reveal some chronic changes such as arthritis of the right shoulder in the neck which we discussed. Your lab work was overall reassuring. Your urine test was sent to the lab for culture, and you will be called in 2-3 days if this test reveals a urinary tract infection that requires antibiotics. At this time I would like you to rest, hydrate, use Tylenol if needed for pain, and call to schedule a follow up appointment with your primary care doctor. I do recommend that you use a cane or other assistive device to help you walk in your garden if you ever feel unsteady. Your blood pressure was elevated today, so you were provided with your home dose blood pressure medications of amlodipine 10 mg and lisinopril 40 mg. Please return to the ER immediately if you develop severe pain, nausea or vomiting, changes in your vision, inability to walk, chest pain, shortness of breath or other concerns. Please follow up with your primary care doctor within the next 2-3 days for ER follow-up. (If you do not have a PCP you can call [phone]. ?to schedule an appointment with an [facility] Primary Care Provider) IF YOU DEVELOP ANY NEW OR WORSENING SYMPTOMS, RETURN TO THE ER! Please read the attached instructions, they highlight more specific treatments and interventions for you at home. Thank you for letting me participate in your care, Beth Nino PA-C Prescriptions: No Action ezetimibe 10 mg tablet 10 mg PO DAILY aspirin 81 MG tablet,delayed release (DR/EC) 81 mg PO QDAY Qty: 30 0RF amlodipine 10 mg tablet 10 mg PO DAILY Qty: 90 3RF (DME) FreeStyle Lite Strips Strip See Rx Instructions .Route Qty: 100 1RF Rx Instructions: As directed to check blood glucose 1-2 times daily lisinopril 40 mg tablet 40 mg PO DAILY Qty: 90 2RF metformin 1,000 mg tablet 1,000 mg PO BID Qty: 360 1RF Rx Instructions: Take 1 tablet (1000mg total) by mouth 2 (two) times daily with meals. rosuvastatin 5 mg tablet 5 mg PO DAILY Qty: 1 0RF magnesium citrate 125 mg capsule 250 mg PO DAILY Qty: 90 0RF cyanocobalamin (vitamin B-12) 2,500 mcg tablet 2,500 mcg PO DAILY Qty: 90 0RF cholecalciferol (vitamin D3) 25 mcg (1,000 unit) capsule 25 mcg PO DAILY Qty: 90 0RF magnesium glycinate 100 mg magnesium capsule 100 mg PO ONCE HS Rx Instructions: Takes for bowel movements Women's 50 Plus Multivitamin 400 mcg-500 mg calcium-20 mcg tablet 1 tab PO DAILY dexamethasone 0.5 mg/5 mL solution 0.5 mg PO BID mometasone 0.1 % solution 1 applic topical DAILY Referrals: Mary Alcantar DO [Primary Care Provider, Family Practice] Stand Alone Forms: Patient Portal/API ED Sign-out <Rehana Casey MD - Last Filed: 11/10/24 19:02> Cosign ED Attending Dayami Attestation: I was immediately available in the department for consultation throughout this patient's visit. Rehana Casey MD
--- NOTE | 2024-11-10 11:26 | DI.CT.S_ITS ---
PROCEDURE: CT HEAD/BRAIN WO CON INDICATIONS: fall x 3 hit back of head; hx SAH TECHNIQUE: Noncontrast 4.5 mm thick angled axial sections acquired from the foramen magnum to the vertex, with coronal and sagittal reformats. For radiation dose reduction, the following was used: automated exposure control, adjustment of mA and/or kV according to patient size. COMPARISON: [facility], CT, CT HEAD/BRAIN WO CON, 04/03/2024, 8:57. FINDINGS: Image quality: Diagnostic. CSF spaces: Basal cisterns are patent. No extra-axial fluid collections. The ventricles are symmetric in size and shape. Brain: No intracranial bleeds or mass effect. Focal encephalomalacia in right occipital lobe at previously noted site of intraparenchymal hemorrhage is seen. There is cerebral volume loss, with resultant ventricular and sulcal prominence. There are periventricular and deep white matter chronic small vessel ischemic changes. There is intracranial internal carotid artery atherosclerosis. Skull and face: Calvarium and visualized facial bones appear intact, without suspicious lesions. Sinuses: Visualized sinuses and mastoids are clear. IMPRESSION: No acute intracranial pathology. Dictated by: Oren Garcias M.D. on 11/10/2024 at 12:11 Approved by: Oren Garcias M.D. on 11/10/2024 at 12:12
--- NOTE | 2024-11-10 11:26 | DI.CT.S_ITS ---
PROCEDURE: CT CERVICAL SPINE WO CON INDICATIONS: fall x 3 TECHNIQUE: Noncontrast 3 mm thick sections acquired from the skull base to the T4 level. Sagittal and coronal reformats were then constructed. For radiation dose reduction, the following was used: automated exposure control, adjustment of mA and/or kV according to patient size. COMPARISON: None. FINDINGS: Image quality: Excellent. Bones: No fractures or dislocations. Spondylitic changes throughout cervical spine are seen. Visualized superior ribs are intact. Soft tissues: Prevertebral soft tissues are normal in thickness. No paravertebral hematomas. No apical pneumothoraces. IMPRESSION: 1. No displaced fracture or traumatic subluxation. 2. Multilevel spondylitic changes throughout cervical spine. Dictated by: Oren Garcias M.D. on 11/10/2024 at 12:12 Approved by: Oren Garcias M.D. on 11/10/2024 at 12:13
--- NOTE | 2024-11-10 11:26 | DI.RAD.S_ITS ---
PROCEDURE: XR SHOULDER RT MIN 2V INDICATIONS: fall x 3; R shoulder pain TECHNIQUE: 2 views of the shoulder were acquired. COMPARISON: None. FINDINGS: Bones: No fractures or dislocations. Moderate acromioclavicular joint osteoarthritic changes are seen. [id number] glenohumeral joint osteoarthritic changes also noted. No suspicious bony lesions. Visualized ribs appear intact. Soft tissues: No suspicious soft tissue calcifications. IMPRESSION: No acute right shoulder fracture or dislocation. Moderate right shoulder joint osteoarthritis. Dictated by: Oren Garcias M.D. on 11/10/2024 at 12:09 Approved by: Oren Garcias M.D. on 11/10/2024 at 12:11
--- NOTE | 2024-11-10 11:26 | DI.RAD.S_ITS ---
PROCEDURE: XR CHEST 2V INDICATIONS: fall; hit left side TECHNIQUE: 2 views of the chest were acquired. COMPARISON: [facility], , XR CHEST 1V, 04/03/2024, 8:37. FINDINGS: Surgical changes and devices: None. Lungs and pleura: Lungs are clear. No pleural effusions or pneumothorax. Mediastinum: Mediastinal contours are normal. Heart size is normal. Bones and chest wall: No suspicious bony abnormalities. Soft tissues appear unremarkable. IMPRESSION: No acute cardiopulmonary pathology. Dictated by: Oren Garcias M.D. on 11/10/2024 at 12:06 Approved by: Oren Garcias M.D. on 11/10/2024 at 12:09
--- NOTE | 2024-11-10 11:55 | EKG_ITS ---
[address] [address] Test Date: 2024-11-10 Pat Name: Alice Rangel Department: [facility] Room: Gender: Female Regulatory Affairs Assistant: RASHEL : 1940 Requested By: Order Number: [id number] Reading MD: Freddy Womack MD Measurements Intervals [place] Rate: 63 P: 41 MN: 128 QRS: 3 QRSD: 80 T: 27 QT: 402 QTc: 411 Interpretive Statements Normal sinus rhythm Low voltage QRS Electronically Signed On 11-10-2024 13:46:51 PDT by Freddy Womack MD
[2024-11-10 11:58] VITALS: PULSE 64; O2SAT 99
[2024-11-10 12:00] VITALS: PULSE 62; RESP 810; O2SAT 99
[2024-11-10 12:01] VITALS: BP 158/71; PULSE 62; RESP 12; O2SAT 99
[2024-11-10 12:01] LABS: Add Manual Diff / Slide Review NO; Basophils Absolute Auto 100 /uL (0-100); Basophils Percent Auto 0.7 % (0-2); Eosinophils Absolute Auto 100 /uL (0-450); Eosinophils Percent Auto 1.3 % (2-4); Hematocrit 41.6 % (36-46); Hemoglobin 13.9 g/dL (12.0-16.0); Lymphocytes Absolute Auto 1800 /uL (1100-4500); Lymphocytes Percent Auto 21.8 % (25-40); Mean Corpuscular HGB Conc 33.3 % (30-36); Mean Corpuscular Hemoglobin 29.4 PG (26-34); Mean Corpuscular Volume 88.2 fL (80-100); Monocytes Absolute Auto 500 /uL (0-900); Monocytes Percent Auto 6.6 % (3-14); Neutrophils Absolute Auto 5800 /uL (1500-7000); Neutrophils Percent Auto 69.6 % (50-75); Platelet Count 271 X10^3/uL (150-400); Red Blood Cell Count 4.72 X10^6/uL (4.0-5.2); Red Cell Distribution Width 13.4 % (11.6-14.8); White Blood Cell Count 8.3 X10^3/uL (4.5-11.0)
[2024-11-10 12:04] LABS: Bacteria Urine None Seen; RBC Urine None Seen (0-5/HPF); Squamous Epithelial Cell Urine 0-1 /HPF (0-5/HPF); Urine Volume 10mL (spun); WBC Urine 1-5/HPF (0-5/HPF)
[2024-11-10 12:05] LABS: Calcium Oxalate Crystals Urine Few; Culture Indicated Urine Cult Not Indicated
[2024-11-10 12:08] LABS: INR 0.8 (0.9-1.3); Prothrombin Time 9.6 SECONDS (9.4-12.5)
[2024-11-10 12:12] LABS: Alanine Aminotransferase 17 IU/L (<35); Albumin 4.9 g/dL (3.5-5.0); Albumin Globulin Ratio 1.6 (1.0-2.8); Alkaline Phosphatase 70 U/L (38-126); Aspartate Aminotransferase 27 IU/L (14-36); BUN Creatinine Ratio 24.6 (6-22); Bilirubin Total 0.8 mg/dL (0.2-1.3); Blood Urea Nitrogen 16 mg/dL (7-17); Calcium 9.7 mg/dL (8.4-10.2); Carbon Dioxide 27 mmol/L (22-32); Chloride 101 mmol/L (98-107); Creatine Kinase 43 U/L (30-135); Estimated Glomerular Filt Rate > 60 mL/min (>60); Glucose 186 mg/dL (70-99); HEMOLYSIS < 15 (0-50); Potassium 4.1 mmol/L (3.4-5.1); Sodium 138 mmol/L (137-145); Total Protein 7.9 g/dL (6.3-8.2)
[2024-11-10 12:23] LABS: Troponin I < 0.012 ng/mL (0.01-0.034)
[2024-11-10 12:30] VITALS: BP 162/71; PULSE 61; RESP 14; O2SAT 98
[2024-11-10 12:37] LABS: PTT Partial Thromboplastin Tim 28 SECONDS (25.1-36.5)
[2024-11-10 12:47] VITALS: BP 162/71; PULSE 64
[2024-11-10] MEDS: lisinopriL 20 MG TABLET 40 MG PO (12:47)
[2024-11-10] MEDS: AMLODIPINE 5 MG TABLET 10 MG PO (12:48)
== END 2024-11-10 13:06 | disposition home or self-care (01) ==
PROVIDERS: Emergency Provider Physician Assistant; Family Provider Family Medicine; PCP Family Medicine
DX: S09.90XA Unspecified injury of head, initial encounter (principal); W18.30XA Fall on same level, unspecified, initial encounter
CPT/HCPCS: 36415; 70450; 71046; 72125; 73030; 80053; 81003; 81015; 82550; 84484; 85025; 85610; 85730; 87086; 93005; 93010; 99284

== ENCOUNTER → 2025-03-24 14:35 | Outpatient (CLI) | payer MEDICARE, SELFPAY ==
[2025-03-24 14:58] LABS: Hemoglobin A1C% w Est Avg Glu 8.2 % (4.0-6.0)
[2025-03-24 16:20] LABS: Cholesterol 223 mg/dL (140-199); HDL Cholesterol 82 mg/dL (40-60); Triglycerides 220 mg/dL (35-150)
== END ==
PROVIDERS: PCP Family Medicine; Referring Provider Family Medicine; Visit Provider Family Medicine
DX: E11.9 Type 2 diabetes mellitus without complications (principal); E78.5 Hyperlipidemia, unspecified
CPT/HCPCS: 36415; 80061; 83036

== ENCOUNTER → 2025-04-13 12:04 | Outpatient (CLI) | payer MEDICARE, SELFPAY ==
[2025-04-13 13:35] LABS: Estimated Glomerular Filt Rate > 60 mL/min (>60)
== END ==
PROVIDERS: Urology; PCP Family Medicine; Referring Provider Family Medicine; Visit Provider Family Medicine
DX: N20.0 Calculus of kidney (principal)
CPT/HCPCS: 36415; 82565